=== PATIENT | male | born 1960 | race Caucasian/White ===

== ENCOUNTER 2019-02-23 23:46 | Observation (INO) | payer OTHER ==
[2019-02-24] MEDS ORDERED: Morphine 4 MG/ML VIAL ONE (00:09)
[2019-02-24] MEDS ORDERED: Ondansetron PF 4 MG/2 ML Vial ONE (00:09)
[2019-02-24 00:33] LABS: #Basophils 0.1 thou/uL (0.0-0.2); #Eosinphils 0.4 thou/uL (0.0-0.7); #Monocytes 0.9 thou/uL (0.11-0.59); #Neutrophils 6.6 thou/uL (1.40-6.50); %Basophils 0.7 % (0.0-1.0); %Eosinophils 3.6 % (0.0-10.0); %Lymphocytes 27.1 % (21.0-51.0); %Monocytes 8.2 % (0.0-10.0); %Neutrophils 60.4 % (42.0-75.0); Hemoglobin 15.4 g/dL (14.0-18.0); Mean Corpuscular HGB CONC 34.3 g/dL (32.0-36.0); Mean Corpuscular Hemoglobin 29.1 pg (27.0-31.0); Mean Corpuscular Volume 84.9 fL (78.0-98.0); Mean Platelet Volume 10.6 fL (7.4-10.4); Platelet Count 235 thou/uL (130-400); RBC Distribution Width 12.3 % (11.5-14.5); Red Blood Cell (RBC) Count 5.29 mill/uL (4.70-6.10)
[2019-02-24 01:03] LABS: ALT (SGPT) 40 U/L (8-55); AST (SGOT) 25 U/L (5-34); Albumin 4.6 g/dL (3.5-5.0); Alkaline Phosphatase 96 U/L (40-150); Anion Gap 14 mmol/L (10-20); BUN (Urea Nitrogen) 21 mg/dL (8.4-25.7); Bilirubin, Total 0.4 mg/dL (0.2-1.2); Calc. Creatinine Clearance 0 mL/min (70-130); Calcium 9.4 mg/dL (7.8-10.44); Carbon Dioxide 26 mmol/L (22-29); Chloride 101 mmol/L (98-107); Estimated GFR-MDRD 67; Globulin 3.7 g/dL (2.4-3.5); Glucose 148 mg/dL (70-105); Lipase 26 U/L (8-78); Potassium 4.3 mmol/L (3.5-5.1); Protein, Total 8.3 g/dL (6.0-8.3); Sodium 137 mmol/L (136-145)
[2019-02-24] MEDS ORDERED: hydrALAZINE 20 MG/ML VIAL ONE (01:05)
[2019-02-24] MEDS ORDERED: Nitroglycerin 0.4 MG TAB 1 EACH ONE (02:54)
[2019-02-24] MEDS ORDERED: Nitroglycerin 2% Ointment 1 INCH/1 GM Packet ONE (03:41)
[2019-02-24 03:46] LABS: Troponin I 0.017 ng/mL (< 0.028)
[2019-02-24 05:22] VITALS: BMI 37.1
--- NOTE | 2019-02-24 07:47 | RAD ---
EXAM: Portable chest PROVIDED CLINICAL HISTORY: Chest pain COMPARISON: None FINDINGS: Cardiac and mediastinal silhouette is within normal limits. No focal consolidation, pleural fluid or pneumothorax evident. IMPRESSION: No evidence for an acute cardiopulmonary process.
[2019-02-24 07:55] LABS: Troponin I 0.022 ng/mL (< 0.028)
--- NOTE | 2019-02-24 08:50 | CT ---
PRELIMINARY REPORT/[facility]/EMERGENCY AFTER HOURS PROCEDURE: PROCEDURE INFORMATION: Exam: CT Angiography Chest With Contrast Exam date and time: 02/24/2019 12:44 AM Clinical history: 58 years old, male; Abdominal pain; Generalized; Patient HX: 58 y/o m, with h/o HTN, hyperlipidemia, presents to ED C/O sudden onset of cp that began at approx 1830, shortly after P T finished eating. He did take his bld pressure medications today. No h/o tobacco use, frequent ETOH ingestion. Pain radiates, to the back, abd, chest pain diffuse to chest. No surgical history TECHNIQUE: Imaging protocol: Computed tomographic angiography of the chest with intravenous contrast. 3D rendering: MIP reconstructed images were created and reviewed. COMPARISON: No relevant prior studies available. FINDINGS: Pulmonary arteries: Normal. No pulmonary emboli. Aorta: Aorta is unremarkable. Lungs: Unremarkable. No consolidation. No masses. Pleural space: Unremarkable. No pneumothorax. No pleural effusion. Heart: Unremarkable. No cardiomegaly. No pericardial effusion. Mediastinum: Esophagus is unremarkable. Lymph nodes: Unremarkable. No enlarged lymph nodes. Bones/joints: Unremarkable. No acute fracture. Soft tissues: Unremarkable. IMPRESSION: 1. No acute findings. 2. Aorta is unremarkable. PROCEDURE INFORMATION: Exam: CT Angiography Abdomen With Contrast Exam date and time: 02/24/2019 12:44 AM Clinical history: 58 years old, male; Abdominal pain; Generalized; Patient HX: 58 y/o m, with h/o HTN, hyperlipidemia, presents to ED C/O sudden onset of cp that began at approx 1830, shortly after P T finished eating. He did take his bld pressure medications today. No h/o tobacco use, frequent ETOH ingestion. Pain radiates, to the back, abd, chest pain diffuse to chest. No surgical history TECHNIQUE: Imaging protocol: Computed tomographic angiography images of the abdomen with intravenous contrast material. 3D rendering: MIP reconstructed images were created and reviewed. COMPARISON: No relevant prior studies available. FINDINGS: VASCULATURE: Aorta: Aorta is unremarkable. Celiac trunk and mesenteric arteries: No occlusion or significant stenosis. Renal arteries: No occlusion or significant stenosis. ABDOMEN: Liver: Large area of multifocal hyperenhancement in the right lobe of the liver may signify vascular malformations. No discrete mass lesion identified. Gallbladder and bile ducts: Cholelithiasis. No cholecystitis or biliary ductal dilatation. Pancreas: Normal. No ductal dilation. Spleen: Normal. No splenomegaly. Adrenals: Normal. No mass. Kidneys and ureters: Normal. No hydronephrosis. Stomach and bowel: Unremarkable. No obstruction. No mucosal thickening. Intraperitoneal space: Unremarkable. No free air. No significant fluid collection. Bones/joints: Unremarkable. No acute fracture. No dislocation. Soft tissues: Unremarkable. Lymph nodes: Unremarkable. No enlarged lymph nodes. IMPRESSION: 1. Large area of multifocal hyperenhancement in the right lobe of the liver may signify vascular malformations. No discrete mass lesion identified. 2. Aorta is unremarkable. Thank you for allowing us to participate in the care of your patient. Dictated and Authenticated by: Chavez Christopher MD 02/24/2019 1:01 AM Central Time ([place] & [place]) FINAL REPORT: CT ANGIOGRAM CHEST AND ABDOMEN WITH IV CONTRAST AND 3D MIP RECONSTRUCTIONS: PROVIDED CLINICAL HISTORY: Chest pain. COMPARISON: CT 01/11/2013. FINDINGS/IMPRESSION: Agree with the preliminary interpretation given by NEHEMIAH. Right hepatic lobe enhancement differences a ppear similar to the prior CT of the abdomen. Transcribed Date/Time: 02/24/2019 9:23 AM
--- NOTE | 2019-02-24 10:56 | HP ---
CHIEF COMPLAINT: Chest pain. HISTORY OF PRESENT ILLNESS: This patient is a 58-year-old male, who presented via the emergency department with complaint of chest pain. He reports the pain started on the evening of 02/23/2019, around 2130 hours. It was gradual in onset and was described as pressure and dullness. It was midsternal to mid abdomen and radiating to the back. At 2345 hours, the patient's son drove him to the ER because the pain had reached a level of 8/10 and was unbearable. He had some diaphoresis, but denied nausea, vomiting, shortness of breath, or headache. His blood pressure on arrival was 188 and peaked at 216/103 in the emergency department. There were no antecedent stressors that the patient can identify that might have caused elevation in blood pressure, and there were no exacerbating or alleviating factors. In the emergency department, the patient had nitroglycerin, hydralazine, morphine, and Zofran with some improvement of his blood pressure. The patient has had no prior cardiac workup and does not have a stock drier tender. REVIEW OF SYSTEMS: The patient does report occasionally having some reflux type symptoms, but only a couple of times per year. He has the above-mentioned chest pain. All other systems were reviewed. All other pertinent positives and negatives noted in the history of present illness. PAST MEDICAL HISTORY: Hypertension, hyperlipidemia. 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 Walker for in the past and these are apparently benign. History of colon polyps with polypectomy in 2017. SURGICAL HISTORY: Colonoscopy x2. FAMILY HISTORY: Father had an RI at 57, hypertension, diabetes. His mother had hypertension. SOCIAL HISTORY: The patient drinks about one glass of wine per week. He denies alcohol or drugs. He is . He is full code, and his , Tamara Laurent would be his surrogate decision maker. ALLERGIES: NONE. MEDICATIONS: 1. Lisinopril 20 mg daily. 2. Atorvastatin 40 mg daily. PHYSICAL EXAMINATION: VITAL SIGNS: Blood pressure 132/63, pulse 71, respirations 20, O2 saturations 97% on room air. GENERAL APPEARANCE: Age-appropriate male, in no distress. He is awake and alert. He is obese. HEENT: PERRL. No OP lesions. Anicteric sclera. NECK: Supple and symmetric. No lymphadenopathies or bruits. HEART: Regular with no murmurs, gallops, or rubs. Lungs: Clear to auscultation bilaterally with no wheezes or rales. Has fair air exchange and good chest wall expansion. ABDOMEN: Soft, nondistended. Positive bowel sounds, which are normal. No guarding or rebound. No hepatosplenomegaly. Has some slight vague tenderness in the epigastric area. EXTREMITIES: No cyanosis, clubbing, or edema. Pulses present. NEUROLOGIC: The patient is oriented x3. Cranial nerves are grossly intact. No focal deficits. Has spontaneous movement of all extremities. SKIN: Warm and dry with no lesions. PSYCHIATRIC: Normal affect and behavior. LABORATORY DATA: White count 11.0, hemoglobin 15.4, platelets 235. Sodium 137, potassium 4.3, chloride 101, CO2 of 26, BUN 21, creatinine is 1.12, glucose 148. Troponin initially less than 0.01, subsequent 0.017 and the third is 0.022. Chest x-ray shows no acute processes. CT dissection protocol is negative other than the liver vessels, which were previously known. EKG shows some right axis deviation, no ischemic changes, subsequently noted some sinus bradycardia. IMPRESSION AND PLAN: 1. Chest pain in a patient with a family history of coronary artery disease, hypertension, and hyperlipidemia. His troponins are still negative, but trending slightly upward, I suspect this is more related to the hypertension. We will go ahead and obtain exercise stress test today. 2. Hypertension, hypertensive urgency, resolved. We will continue to monitor his pressure while here. 3. Possible history of reflux, appears to be stable, may be the source of his underlying symptoms, although given his blood pressure, would be less likely. Job ID: [id number]
[2019-02-24] MEDS ORDERED: ISOVUE-370 76%-LOCM 1 ML ONE (12:45)
[2019-02-24 13:48] VITALS: BP 120/56; TEMP 98.1
--- NOTE | 2019-02-24 14:00 | NM ---
EXAM: NM Cardiac Stress W EF WF PROVIDED CLINICAL HISTORY: Chest pain COMPARISON: None RADIOPHARMACEUTICAL: 27.5 millicuries technetium 99m labeled sestamibi IV stress 9.1 millicuries technetium 99m labeled sestamibi IV rest FINDINGS: There is normal, homogeneous distribution of radiotracer throughout the left ventricular myocardium. Gated data demonstrate normal myocardial wall motion and thickening with calculated LVEF 74%. Calculated TID is 0.93. IMPRESSION: 1. No scintigraphic evidence for ischemia. 2. Calculated LVEF 74%.
[2019-02-25] MEDS ORDERED: Lisinopril 20 MG TAB PO SCH (09:00)
[2019-02-25] MEDS ORDERED: Atorvastatin Calcium 40 MG TAB PO SCH (09:00)
--- NOTE | 2019-02-25 17:17 | DIS ---
DATE OF ADMISSION: 02/24/2019 DATE OF DISCHARGE: 02/24/2019 DISCHARGE DIAGNOSES: 1. Chest pain. 2. Hypertensive urgency. 3. Hypertension. 4. Hyperlipidemia. 5. 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 HISTORY OF PRESENT ILLNESS: This patient is a 58-year-old male, who presented to the emergency department with a complaint of chest pain, started out as a dullness and pressure-type pain, became more severe to 8/10. It became unbearable and he presented to the emergency department, where he had BP as high as 216/103, had no antecedent stressors. He received nitroglycerin, hydralazine, morphine and Zofran, and his blood pressure improved. His initial workup included labs with a troponin less than 0.01. CT dissection protocol of the chest was negative. EKG showed some right axis deviation, no ischemic changes. HOSPITAL COURSE: The patient was placed in observation status. His blood pressure had significantly improved. He had negative findings on the telemetry other than sinus rhythm. His troponins trended at 0.017 and 0.022. He underwent a nuclear medicine stress test, which was negative for ischemic disease. EF was calculated at 74% and his calculated TID was 0.93 with that the patient being asymptomatic. He was felt to be stable for discharge. PHYSICAL EXAMINATION: VITAL SIGNS: Temperature is 98.1, pulse 75, respirations 18, O2 saturation 93%. BP was 120/56. HEART: Regular rate and rhythm. LUNGS: Clear. ABDOMEN: Benign. DISPOSITION: The patient is discharged to home. He is to have a heart-healthy diet. ACTIVITY: As tolerated. He will be on atorvastatin 40 mg daily, lisinopril 20 mg daily. FOLLOWUP: He is to follow up with Dr. London Rand in 4 days and he can return to the hospital should he have the need to do so. Job ID: [id number]
== END 2019-02-24 15:26 | disposition home or self-care (01) ==
LOC: ERS 23:46 → 2SW 02-24 04:50
PROVIDERS: ADMIT Hospitalist; ATTEND Hospitalist
DX: R07.2 Precordial pain (principal); I16.0 Hypertensive urgency; I10 Essential (primary) hypertension; E78.5 Hyperlipidemia, unspecified; Z79.899 Other long term (current) drug therapy
CPT/HCPCS: 36415; 71045; 71275; 72191; 74175; 78452; 80053; 83690; 84484; 85025; 93005; 93017; 96374; 96375; A9500; G0378; J0360; J2270; J2405; Q9966

== ENCOUNTER 2020-06-13 10:27 | Inpatient (IN) | payer OTHER ==
[2020-06-13] MEDS ORDERED: Ibuprofen 800 MG TAB ONE (10:39)
[2020-06-13 10:47] LABS: Hemoglobin 13.8 g/dL (14.0-18.0); Mean Corpuscular HGB CONC 32.6 g/dL (32.0-36.0); Mean Corpuscular Hemoglobin 27.7 pg (27.0-31.0); Mean Corpuscular Volume 84.9 fL (78.0-98.0); Mean Platelet Volume 10.3 fL (7.4-10.4); Platelet Count 261 thou/uL (130-400); RBC Distribution Width 12.4 % (11.5-14.5); Red Blood Cell (RBC) Count 4.97 mill/uL (4.70-6.10); White Blood Cell (WBC) Count 21.6 thou/uL (4.8-10.8)
[2020-06-13] MEDS ORDERED: cefTRIAXone\\ROCEPHIN 2 GM VIAL ONE (10:49)
[2020-06-13] MEDS ORDERED: Azithromycin 500 MG VIAL ONE (10:49)
[2020-06-13] MEDS ORDERED: Dexamethasone 4 mg/ml Vial ONE (10:49)
[2020-06-13 10:57] LABS: INR-International Normal Ratio 1.2; PTT 27.9 sec (22.9-36.1); Prothrombin Time 15.7 sec (12.0-14.7)
--- NOTE | 2020-06-13 10:58 | RAD ---
XR Chest 1 View Portable HISTORY: Covid 19 positive. Low oxygen stats. Hypoxia COMPARISON: None FINDINGS: The heart size is normal. The lungs are hypoinflated with the patchy opacities bilaterally. No pneumothoraces or large effusions are seen.. IMPRESSION: Findings are suspicious for Covid 19 pneumonia.
[2020-06-13 11:07] LABS: Band 5 % (5-11); Lymphocytes 2 % (21-51); MDiff Complete? YES; Monocytes 6 % (0-10); Neutrophil 86 % (42-75); Promyelocytes 1 % (0-0); RBC Morphology Normal
[2020-06-13 11:12] LABS: ALT (SGPT) 74 U/L (8-55); AST (SGOT) 41 U/L (5-34); Alkaline Phosphatase 67 U/L (40-110); Anion Gap 18 mmol/L (10-20); BUN (Urea Nitrogen) 20 mg/dL (8.4-25.7); Calc. Creatinine Clearance 0 mL/min (70-130); Calcium 8.7 mg/dL (7.8-10.44); Carbon Dioxide 24 mmol/L (22-29); Chloride 98 mmol/L (98-107); Globulin 4.3 g/dL (2.4-3.5); Glucose 127 mg/dL (70-105); Lipase 15 U/L (8-78); Potassium 3.6 mmol/L (3.5-5.1); Protein, Total 8.3 g/dL (6.0-8.3); Sodium 136 mmol/L (136-145)
[2020-06-13] MEDS ORDERED: Ondansetron ODT 4 MG TAB PO PRN (12:24)
[2020-06-13] MEDS ORDERED: Calcium Carbonate 500 MG ChewTAB PO PRN (12:24)
[2020-06-13] MEDS ORDERED: Ondansetron PF 4 MG/2 ML Vial IVP PRN (12:24)
--- NOTE | 2020-06-13 13:03 | PDOC.HHP ---
Hospitalist HPI - History of Present Illness Worsening cough, shortness of breath History of Present Illness: PCP: Dr. Rand HPI: The patient is a 59-year-old male with a past medical history significant for hypertension and hyperlipidemia that presents to the emergency department for the above complaint. The patient reports being diagnosed with Covid virus approximately 11 days ago, making his diagnosis date 06/03/2020. He reports that he had mild shortness of breath and nonproductive cough. However, yesterday he developed fever, T-max 102 Fahrenheit along with increasing shortness of breath and nonproductive cough. He has no history of DVT/PE. No history of COPD/asthma. He denies any chest pain, heart palpitations or lightheadedness. No swelling to his lower extremities. Denies abdominal pain, nausea, vomiting and diarrhea. Denies dysuria hematuria. ED Course: Presented febrile T 100.8F, 137/73, 95, 25, 91% 6 LNC. EKG normal sinus rhythm. Troponin negative. CXR suspicious for Covid pneumonia. WBC 21.6, no bandemia Lactic acid 2.0 Medications: Azithromycin and Rocephin IVPB 1 L normal saline Dexamethasone Ibuprofen Hospitalist ROS - Review of Systems All other systems reviewed; all pertinent +/- noted in HPI/Subj - Medication Medications: Atorvastatin 40 mg p.o. daily Lisinopril 20 mg p.o. daily Allergies: No known drug allergies CODE STATUS: Full code Hospitalist History - Past Medical History Source: patient, RN notes reviewed Cardiac: reports: HTN, Hyperlipidemia - Past Surgical History Past Surgical History: reports: no pertinent history - Family History Other Family History: Noncontributory to this case - Social History Smoking Status: Never smoker Alcohol: reports: None Drugs: reports: none Living Situation: With Family Occupation: Has office job Activity level: independent ambulation - Exam General Appearance: NAD, awake alert. negative: ill appearing General - other findings: Appears comfortable, on high flow nasal cannula Eye: anicteric sclera ENT: normocephalic atraumatic Neck: supple, no lymphadenopathy Heart: RRR, no murmur, no gallops, no rubs, normal peripheral pulses Respiratory: no wheezes, no rales, no ronchi Respiratory - other findings: Diminished Gastrointestinal: soft, non-tender, normal bowel sounds, no guarding, no rigidity Extremities: no cyanosis, no edema Neurological: no focal deficits Musculoskeletal: normal tone, normal strength Psychiatric: normal affect, A&O x 3 Hospitalist Results - Labs Result Diagrams: 06/13/20 10:37 06/13/20 10:37 Lab results: WBC 21.6 thou/uL (4.8-10.8) H 06/13/20 10:37 Hgb 13.8 g/dL (14.0-18.0) L 06/13/20 10:37 Hct 42.3 % (42.0-52.0) 06/13/20 10:37 MCV 84.9 fL (78.0-98.0) 06/13/20 10:37 Plt Count 261 thou/uL (130-400) 06/13/20 10:37 Band Neuts % (Manual) 5 % (5-11) 06/13/20 10:37 Sodium 136 mmol/L (136-145) 06/13/20 10:37 Potassium 3.6 mmol/L (3.5-5.1) 06/13/20 10:37 Chloride 98 mmol/L (98-107) 06/13/20 10:37 Carbon Dioxide 24 mmol/L (22-29) 06/13/20 10:37 BUN 20 mg/dL (8.4-25.7) 06/13/20 10:37 Creatinine 1.25 mg/dL (0.7-1.3) 06/13/20 10:37 Glucose 127 mg/dL (70-105) H 06/13/20 10:37 Lactic Acid 2.0 mmol/L (0.5-2.2) 06/13/20 10:37 Calcium 8.7 mg/dL (7.8-10.44) 06/13/20 10:37 Total Bilirubin 1.0 mg/dL (0.2-1.2) 06/13/20 10:37 AST 41 U/L (5-34) H 06/13/20 10:37 ALT 74 U/L (8-55) H 06/13/20 10:37 Alkaline Phosphatase 67 U/L (40-110) 06/13/20 10:37 Troponin I 0.015 ng/mL (< 0.028) 06/13/20 10:37 Serum Total Protein 8.3 g/dL (6.0-8.3) 06/13/20 10:37 Albumin 4.0 g/dL (3.5-5.0) 06/13/20 10:37 Lipase 15 U/L (8-78) 06/13/20 10:37 - EKG Interpretation EKG: Normal sinus rhythm, no ST elevations. - Radiology Interpretation Chest x-ray Status: report reviewed by me Additional Comment: Suspicious for Covid pneumonia Hospitalist H&P A/P - Problem (1) Acute respiratory failure with hypoxia Code(s): J96.01 - ACUTE RESPIRATORY FAILURE WITH HYPOXIA Status: Acute (2) Pneumonia due to COVID-19 virus Code(s): U07.1 - COVID-19; J12.82 - PNEUMONIA DUE TO CORONAVIRUS DISEASE 2019 Status: Acute (3) Sepsis Code(s): A41.9 - SEPSIS, UNSPECIFIED ORGANISM Status: Acute (4) Hypertension Code(s): I10 - ESSENTIAL (PRIMARY) HYPERTENSION Status: Chronic (5) Hyperlipidemia Code(s): E78.5 - HYPERLIPIDEMIA, UNSPECIFIED Status: Chronic - Plan Plan: 59/M diagnosed with Covid virus 06/03/2020 presents for worsening shortness of breath, cough and fever. Admit to medical floor, observation status. #Acute respiratory failure with hypoxia A: Placed on high flow NC, 98% SPO2. NAD Diagnosed 06/03/2020, not a candidate for remdesivir. Continue azithromycin and Rocephin IVPB. Continue dexamethasone. Continue Lovenox. Consult ID. Isolation precautions. Trend acute phase reactants. #Pneumonia due to COVID-19 virus Plan as per above. #Sepsis Likely due to problem #2. LA 2.0, WBC 21.6, no bandemia Received 1 L NS in ED. BP stable. Blood CX pending Check procalcitonin. Continue antibiotics. #Hypertension Chronic. Restart home dose lisinopril. #Hyperlipidemia Restart home dose atorvastatin. Lovenox for DVT prophylaxis. Pepcid for GI prophylaxis. CODE STATUS is full code. Contact is Lester trinh at [phone]. Discussed the case with attending physician, Dr. Gallo.
[2020-06-13 15:43] VITALS: BMI 34.9
[2020-06-13 16:54] LABS: Bacteria/HPF None Seen HPF (None Seen); Bilirubin Negative (Negative); Blood, Urine Negative (Negative); Clarity Clear (Clear); Glucose, Urine (Dipstick) Normal (Negative); Ketone, Urine Negative (Negative); Leukocyte Negative Leu/uL (Negative); Nitrite Negative (Negative); Protein, Urine (Dipstick) 20 mg/dL (Neg-Trace); RBC/HPF 0-3 HPF (0-3); Specific Gravity, Urine 1.012 (1.002-1.036); Squamous Epithelial 0-3 HPF (0-3); Urobilinogen Normal mg/dL (Less than 2); WBC/HPF 0-3 HPF (0-3)
[2020-06-13] MEDS: Famotidine/PF 20 mg/2ml Vial SLOW IVP SCH (19:19)
[2020-06-13] MEDS: Enoxaparin Sodium 40 MG/0.4 ML SYRINGE SC SCH (19:54)
[2020-06-13] MEDS: Famotidine 20 MG TAB PO SCH (19:54)
[2020-06-14] MEDS: Acetaminophen 325 MG TAB PO PRN ×2 (05:54→19:46)
[2020-06-14] MEDS: Guaifenesin DM 100-10/5 ML UDCUP PO PRN ×3 (05:55→19:45)
[2020-06-14 07:07] LABS: #Lymphocytes 0.5 thou/uL (1.20-3.40); #Monocytes 1.1 thou/uL (0.11-0.59); #Neutrophils 17.7 thou/uL (1.40-6.50); %Eosinophils 0.2 % (0.0-10.0); %Lymphocytes 2.5 % (21.0-51.0); %Monocytes 5.5 % (0.0-10.0); %Neutrophils 91.7 % (42.0-75.0); Hemoglobin 12.8 g/dL (14.0-18.0); Mean Corpuscular HGB CONC 32.7 g/dL (32.0-36.0); Mean Corpuscular Hemoglobin 28.2 pg (27.0-31.0); Mean Corpuscular Volume 86.4 fL (78.0-98.0); Platelet Count 239 thou/uL (130-400); RBC Distribution Width 12.3 % (11.5-14.5); Red Blood Cell (RBC) Count 4.52 mill/uL (4.70-6.10); White Blood Cell (WBC) Count 19.4 thou/uL (4.8-10.8)
[2020-06-14 07:23] LABS: ALT (SGPT) 78 U/L (8-55); AST (SGOT) 38 U/L (5-34); Albumin 3.6 g/dL (3.5-5.0); Alkaline Phosphatase 65 U/L (40-110); Anion Gap 14 mmol/L (10-20); BUN (Urea Nitrogen) 20 mg/dL (8.4-25.7); Bilirubin, Total 0.5 mg/dL (0.2-1.2); Calc. Creatinine Clearance 132 mL/min (70-130); Calcium 8.5 mg/dL (7.8-10.44); Carbon Dioxide 26 mmol/L (22-29); Chloride 101 mmol/L (98-107); Globulin 4.1 g/dL (2.4-3.5); Glucose 136 mg/dL (70-105); Protein, Total 7.7 g/dL (6.0-8.3); Sodium 137 mmol/L (136-145)
[2020-06-14] MEDS: Zinc Sulfate 220 MG CAP PO SCH (07:43)
[2020-06-14] MEDS: Cholecalciferol 1,000 UNITS (25 MCG) TAB PO SCH (07:43)
[2020-06-14] MEDS: Dexamethasone 4 mg/ml Vial SLOW IVP SCH (07:44)
[2020-06-14] MEDS: Famotidine 20 MG TAB PO SCH ×2 (07:44→19:45)
[2020-06-14] MEDS: Ascorbic Acid 500 mg Chewable Tablet PO SCH (07:44)
[2020-06-14] MEDS: Famotidine/PF 20 mg/2ml Vial SLOW IVP SCH ×2 (07:45→19:02)
[2020-06-14] MEDS: Enoxaparin Sodium 40 MG/0.4 ML SYRINGE SC SCH ×2 (07:45→19:45)
[2020-06-14] MEDS: cefTRIAXone\\ROCEPHIN 1 GM in Sodium Chloride 0.9% 100 ML IVPB SCH (10:05)
[2020-06-14] MEDS: Azithromycin 500 MG in Sodium Chloride 0.9% 250 ML 250 ML IVPB SCH (11:55)
--- NOTE | 2020-06-14 14:40 | PDOC.HOSPP ---
- Subjective Encounter Date: 06/14/20 Encounter Time: 09:45 Subjective: is comfortable on high flow, eating well no chest pain or palp - Objective Vital Signs & Weight: Vital Signs (12 hours) Temp Pulse Resp BP Pulse Ox 06/14/20 12:00 99 F 70 18 144/78 H 92 L 06/14/20 08:29 98.4 F 68 20 117/73 95 06/14/20 08:05 92 L 06/14/20 08:00 96 06/14/20 05:54 99.8 F H Weight Weight 216 lb 8 oz I&O: 06/13/20 06/14/20 06/15/20 06:59 06:59 06:59 Intake Total 600 Output Total 100 Balance 500 Result Diagrams: 06/14/20 06:14 06/14/20 06:14 Hospitalist ROS - Medication Medications: Active Medications Generic Name Dose Route Start Last Admin Trade Name Freq PRN Reason Stop Dose Admin Acetaminophen 650 mg 06/13/20 12:24 06/14/20 05:54 Acetaminophen 325 Mg Tab PO 650 mg Q4H PRN Administration Headache/Fever/Mild Pain (1-3) Ascorbic Acid 1,000 mg 06/14/20 09:00 06/14/20 07:44 Ascorbic Acid 500 Mg Chewable Tablet PO 1,000 mg DAILY RENAE Administration Cholecalciferol 5,000 units 06/14/20 09:00 06/14/20 07:43 Cholecalciferol 1,000 Units (25 Mcg) Tab PO 5,000 units DAILY RENAE Administration Dexamethasone 6 mg 06/14/20 09:00 06/14/20 07:44 Dexamethasone 4 Mg/Ml Vial SLOW IVP 6 mg DAILY RENAE Administration Enoxaparin Sodium 40 mg 06/13/20 21:00 06/14/20 07:45 Enoxaparin Sodium 40 Mg/0.4 Ml Syringe SC 40 mg 0900,2100 RENAE Administration Famotidine 20 mg 06/13/20 21:00 06/14/20 07:44 Famotidine 20 Mg Tab PO 20 mg BID RENAE Administration Famotidine 20 mg 06/13/20 21:00 06/14/20 07:45 Famotidine/Pf 20 Mg/2ml Vial SLOW IVP Not Given Q12HR RENAE Guaifenesin/Dextromethorphan 15 ml 06/13/20 12:24 06/14/20 05:55 Guaifenesin Dm 100-10/5 Ml Udcup PO 15 ml Q4H PRN Administration Cough Ceftriaxone Sodium 1 gm/ 100 mls @ 200 mls/hr 06/14/20 11:00 06/14/20 10:05 Sodium Chloride IVPB 100 mls 1100 RENAE Administration Azithromycin 500 mg/ Sodium 250 mls @ 250 mls/hr 06/14/20 10:00 06/14/20 11:55 Chloride IVPB 250 mls 1000 RENAE Administration Zinc Sulfate 220 mg 06/14/20 09:00 06/14/20 07:43 Zinc Sulfate 220 Mg Cap PO 220 mg DAILY RENAE Administration - Exam General Appearance: awake alert Eye: PERRL, anicteric sclera ENT: no oropharyngeal lesions, moist mucosa Neck: supple, no JVD Heart: RRR, no murmur Respiratory: no wheezes, rales, rhonchi Gastrointestinal: soft, non-tender, non-distended, normal bowel sounds Extremities: no cyanosis, no edema Neurological: cranial nerve grossly intact, no focal deficits Psychiatric: normal affect, A&O x 3 Hosp A/P (1) Acute respiratory failure with hypoxia Code(s): J96.01 - ACUTE RESPIRATORY FAILURE WITH HYPOXIA Status: Acute (2) Pneumonia due to COVID-19 virus Code(s): U07.1 - COVID-19; J12.82 - PNEUMONIA DUE TO CORONAVIRUS DISEASE 2019 Status: Acute (3) Sepsis Code(s): A41.9 - SEPSIS, UNSPECIFIED ORGANISM Status: Acute Qualifiers: Sepsis type: sepsis due to unspecified organism (4) Hyperlipidemia Code(s): E78.5 - HYPERLIPIDEMIA, UNSPECIFIED Status: Chronic Qualifiers: Hyperlipidemia type: unspecified Qualified Code(s): E78.5 - Hyperlipidemia, unspecified (5) Hypertension Code(s): I10 - ESSENTIAL (PRIMARY) HYPERTENSION Status: Chronic Qualifiers: Hypertension type: essential hypertension Qualified Code(s): I10 - Essential (primary) hypertension (6) Obesity (BMI 30.0-34.9) Code(s): E66.9 - OBESITY, UNSPECIFIED Status: Chronic - Plan is on dexamethasone, zithromax and ceftriaxone due to elevated wbc, alb inh continue vit C, zinc, lovenox dvt prophy, pepcid has covid symptoms from 06/03, await opinion for remdesivir, has potential to get worse crp is 16 change status to inpatient with high risk for decompensating and currently on high flow
[2020-06-14] MEDS: Albuterol 200 PUFF (6.7GM INHALER) INH PRN (20:42)
--- NOTE | 2020-06-14 21:47 | CON ---
DATE OF CONSULTATION: 06/14/2020 REASON: COVID pneumonia. HISTORY OF PRESENT ILLNESS: A 59-year-old, who has a history of hyperlipidemia, hypertension, presented with worsening dyspnea and cough, which had been present for about 11 days before his admission. He was admitted on June 13. His initial blood pressure was 130/70 and he was breathing 25 times a minute. His temperature was 100.8. O2 saturations were 91 on 4 L. The exam showed increased work of breathing and poor air movement. The remainder of the examination was not particularly remarkable. The chest x-ray shows diffuse infiltrates. A CT was not done. Initial findings also included white cell count 21.6, hemoglobin 13.8, platelets were 261 with 86% neutrophils. Initial chemistry with a creatinine 1.25, AST 41, ALT 74, albumin 4.0. Initial CRP was 16.69 but that was day after admission. He has been given Rocephin, and Decadron. Currently, he is actually on high-flow nasal cannula O2. He was saturating at 94 when I saw him, flow of 60. He was breathing 36 times a minute. He did not have a headache. He is feeling comfortable at rest, although he was tachypneic, coughing intermittently, mostly a dry cough. No chest pain or abdominal pain. Voiding without difficulty. Some diarrhea, is able to eat, and has not experienced anosmia or taste changes. PAST MEDICAL HISTORY: Obesity, hyperlipidemia, hypertension. PAST SURGICAL HISTORY: Negative. SOCIAL HISTORY: He drinks occasionally, never smoker. ALLERGIES: NONE. FAMILY HISTORY: Noncontributory. MEDICATIONS: The meds have been discussed above. PHYSICAL EXAMINATION: VITAL SIGNS: T-max 99.8, is now 98.8. His heart rate is 79, BP 130/70. He was breathing. When I saw him, he was breathing at 36 times a minute. He was saturating 94% with 60 L high-flow nasal cannula O2. HEENT: His ocular movements are conjugate. Oral cavity is normal. LUNGS: With scattered inspiratory crackles, quite cellophane like at the bases. The air excursion was quite limited. HEART: S1, S2, regular rate. ABDOMEN: Soft, not distended or tender. No ascites. No bladder distention. EXTREMITIES: He moves all extremities equally. LABORATORY DATA: Latest labs, creatinine is 0.84 and AST 38, ALT 78. White cell count was 19.4, hemoglobin 12.8. His ROSEMARY score was 5.22. ASSESSMENT: Obesity, hypertension, hyperlipidemia, severe SARS-CoV-2 infection with pneumonia. The patient's ROSEMARY score is going towards the wrong direction, and his lungs sounds are very worrisome for the prospect of protracted process, and unless the corticosteroids turn this process around, he is going to end up in the ICU intubated. Monitor inflammatory markers every other day. He would not benefit from antiviral treatment at this point in time. It is mostly an inflammatory process, again tocilizumab has been shown recently in two separate studies to be effective not only in reducing mortality but marked reduction in time to recovery, so hopefully soon will be able to take advantage of this drug again. Job ID: [id number] SHANNON
[2020-06-15] MEDS: Acetaminophen 325 MG TAB PO PRN ×2 (03:50→11:50)
[2020-06-15] MEDS: Albuterol 200 PUFF (6.7GM INHALER) INH PRN (04:06)
[2020-06-15] MEDS: Enoxaparin Sodium 40 MG/0.4 ML SYRINGE SC SCH ×2 (09:15→20:39)
[2020-06-15] MEDS: Cholecalciferol 1,000 UNITS (25 MCG) TAB PO SCH (09:16)
[2020-06-15] MEDS: Dexamethasone 4 mg/ml Vial SLOW IVP SCH (09:16)
[2020-06-15] MEDS: Zinc Sulfate 220 MG CAP PO SCH (09:16)
[2020-06-15] MEDS: Ascorbic Acid 500 mg Chewable Tablet PO SCH (09:17)
[2020-06-15] MEDS: Famotidine/PF 20 mg/2ml Vial SLOW IVP SCH ×2 (11:48→20:42)
[2020-06-15] MEDS: Azithromycin 500 MG in Sodium Chloride 0.9% 250 ML 250 ML IVPB SCH (11:49)
[2020-06-15] MEDS: cefTRIAXone\\ROCEPHIN 1 GM in Sodium Chloride 0.9% 100 ML IVPB SCH (11:49)
[2020-06-15] MEDS: Famotidine 20 MG TAB PO SCH ×2 (11:50→20:40)
--- NOTE | 2020-06-15 14:28 | PDOC.HOSPP ---
- Subjective Encounter Date: 06/15/20 Encounter Time: 09:00 Subjective: has sob, is on high flow ate his breakfast, no new complaints - Objective Vital Signs & Weight: Vital Signs (12 hours) Temp Pulse Resp BP Pulse Ox 06/15/20 12:35 100.9 F H 80 20 92 L 06/15/20 12:33 100.9 F H 81 20 133/67 92 L 06/15/20 12:20 100.9 F H 06/15/20 11:50 100.2 F H 06/15/20 08:00 100.9 F H 81 20 135/79 90 L 06/15/20 07:31 91 L 06/15/20 05:07 99.4 F 20 96 06/15/20 04:00 101.8 F H 78 40 H 134/73 89 L 06/15/20 03:50 101.9 F H Weight Weight 216 lb 8 oz I&O: 06/14/20 06/15/20 06/16/20 06:59 06:59 06:59 Intake Total 2200 Output Total 1975 Balance 225 Result Diagrams: 06/14/20 06:14 06/14/20 06:14 Hospitalist ROS - Medication Medications: Active Medications Generic Name Dose Route Start Last Admin Trade Name Freq PRN Reason Stop Dose Admin Acetaminophen 650 mg 06/13/20 12:24 06/15/20 11:50 Acetaminophen 325 Mg Tab PO 650 mg Q4H PRN Administration Headache/Fever/Mild Pain (1-3) Albuterol Sulfate 2 puff 06/14/20 20:04 06/15/20 04:06 Albuterol 200 Puff (6.7gm Inhaler) INH 2 puff Q4H PRN Administration Wheezing Ascorbic Acid 1,000 mg 06/14/20 09:00 06/15/20 09:17 Ascorbic Acid 500 Mg Chewable Tablet PO 1,000 mg DAILY RENAE Administration Cholecalciferol 5,000 units 06/14/20 09:00 06/15/20 09:16 Cholecalciferol 1,000 Units (25 Mcg) Tab PO 5,000 units DAILY RENAE Administration Dexamethasone 6 mg 06/14/20 09:00 06/15/20 09:16 Dexamethasone 4 Mg/Ml Vial SLOW IVP 6 mg DAILY RENAE Administration Enoxaparin Sodium 40 mg 06/13/20 21:00 06/15/20 09:15 Enoxaparin Sodium 40 Mg/0.4 Ml Syringe SC 40 mg 0900,2100 RENAE Administration Famotidine 20 mg 06/13/20 21:00 06/15/20 11:50 Famotidine 20 Mg Tab PO 20 mg BID RENAE Administration Famotidine 20 mg 06/13/20 21:00 06/15/20 11:48 Famotidine/Pf 20 Mg/2ml Vial SLOW IVP Not Given Q12HR RENAE Guaifenesin/Dextromethorphan 15 ml 06/13/20 12:24 06/14/20 19:45 Guaifenesin Dm 100-10/5 Ml Udcup PO 15 ml Q4H PRN Administration Cough Ceftriaxone Sodium 1 gm/ 100 mls @ 200 mls/hr 06/14/20 11:00 06/15/20 11:49 Sodium Chloride IVPB 100 mls 1100 RENAE Administration Azithromycin 500 mg/ Sodium 250 mls @ 250 mls/hr 06/14/20 10:00 06/15/20 11:49 Chloride IVPB 250 mls 1000 RENAE Administration Zinc Sulfate 220 mg 06/14/20 09:00 06/15/20 09:16 Zinc Sulfate 220 Mg Cap PO 220 mg DAILY RENAE Administration - Exam General Appearance: awake alert Eye: PERRL, anicteric sclera ENT: no oropharyngeal lesions, dry oral mucosa Neck: supple, no JVD Heart: RRR, no murmur Respiratory: no wheezes, rales, rhonchi, tachypneic Gastrointestinal: soft, non-tender, non-distended, normal bowel sounds Extremities: no cyanosis, no edema Neurological: cranial nerve grossly intact, no focal deficits Psychiatric: normal affect, A&O x 3 Hosp A/P (1) Acute respiratory failure with hypoxia Code(s): J96.01 - ACUTE RESPIRATORY FAILURE WITH HYPOXIA Status: Acute (2) Pneumonia due to COVID-19 virus Code(s): U07.1 - COVID-19; J12.82 - PNEUMONIA DUE TO CORONAVIRUS DISEASE 2019 Status: Acute (3) Sepsis Code(s): A41.9 - SEPSIS, UNSPECIFIED ORGANISM Status: Acute Qualifiers: Sepsis type: sepsis due to unspecified organism (4) Hyperlipidemia Code(s): E78.5 - HYPERLIPIDEMIA, UNSPECIFIED Status: Chronic Qualifiers: Hyperlipidemia type: unspecified Qualified Code(s): E78.5 - Hyperlipidemia, unspecified (5) Hypertension Code(s): I10 - ESSENTIAL (PRIMARY) HYPERTENSION Status: Chronic Qualifiers: Hypertension type: essential hypertension Qualified Code(s): I10 - Essential (primary) hypertension (6) Obesity (BMI 30.0-34.9) Code(s): E66.9 - OBESITY, UNSPECIFIED Status: Chronic - Plan is on dexamethasone, zithromax and ceftriaxone due to elevated wbc, alb inh continue vit C, zinc, lovenox dvt prophy, pepcid has covid symptoms from 06/03, d/w , is a candidate for tocalizumab, await drug availability in pharmacy with [facility] approval crp is 16 I have discussed code status with him on 06/14/2020 and he wanted us to try everything for now d/w son and gave a full update including possible worsening and getting intubated if he desaturates 06/15
[2020-06-15] MEDS: Guaifenesin DM 100-10/5 ML UDCUP PO PRN (20:41)
[2020-06-16] MEDS: Guaifenesin DM 100-10/5 ML UDCUP PO PRN ×2 (00:54→21:08)
[2020-06-16] MEDS: Acetaminophen 325 MG TAB PO PRN ×3 (05:31→21:01)
[2020-06-16 06:44] LABS: Mean Corpuscular HGB CONC 31.6 g/dL (32.0-36.0); Mean Corpuscular Hemoglobin 27.2 pg (27.0-31.0); Mean Corpuscular Volume 86.1 fL (78.0-98.0); Mean Platelet Volume 9.6 fL (7.4-10.4); Platelet Count 285 thou/uL (130-400); RBC Distribution Width 12.5 % (11.5-14.5); Red Blood Cell (RBC) Count 4.41 mill/uL (4.70-6.10); White Blood Cell (WBC) Count 20.7 thou/uL (4.8-10.8)
[2020-06-16 06:53] LABS: ALT (SGPT) 101 U/L (8-55); AST (SGOT) 40 U/L (5-34); Albumin 3.4 g/dL (3.5-5.0); Alkaline Phosphatase 63 U/L (40-110); Anion Gap 15 mmol/L (10-20); BUN (Urea Nitrogen) 19 mg/dL (8.4-25.7); Bilirubin, Total 0.8 mg/dL (0.2-1.2); Calc. Creatinine Clearance 127 mL/min (70-130); Calcium 8.1 mg/dL (7.8-10.44); Carbon Dioxide 22 mmol/L (22-29); Chloride 102 mmol/L (98-107); Globulin 4.1 g/dL (2.4-3.5); Glucose 103 mg/dL (70-105); Potassium 4.4 mmol/L (3.5-5.1); Protein, Total 7.5 g/dL (6.0-8.3); Sodium 135 mmol/L (136-145)
[2020-06-16 07:37] LABS: Band 7 % (5-11); Lymphocytes 1 % (21-51); MDiff Complete? YES; Metamyelocyte 5 % (0-0); Monocytes 6 % (0-10); Myelocyte 3 % (0-0); Neutrophil 75 % (42-75); Platelet Morphology Comment Appears Adequate; Polychromasia SLIGHT = 2-3 cells (100X) (0-2/hpf); Reactive Lymphocytes 3 % (0-10); Vacuoles SLIGHT
[2020-06-16] MEDS: Famotidine 20 MG TAB PO SCH ×2 (08:45→21:01)
[2020-06-16] MEDS: Zinc Sulfate 220 MG CAP PO SCH (08:46)
[2020-06-16] MEDS: Cholecalciferol 1,000 UNITS (25 MCG) TAB PO SCH (08:46)
[2020-06-16] MEDS: Ascorbic Acid 500 mg Chewable Tablet PO SCH (08:47)
[2020-06-16] MEDS: Enoxaparin Sodium 40 MG/0.4 ML SYRINGE SC SCH ×2 (08:48→21:23)
[2020-06-16] MEDS: Dexamethasone 4 mg/ml Vial SLOW IVP SCH (08:48)
[2020-06-16] MEDS: Famotidine/PF 20 mg/2ml Vial SLOW IVP SCH ×2 (08:49→21:02)
[2020-06-16] MEDS: cefTRIAXone\\ROCEPHIN 1 GM in Sodium Chloride 0.9% 100 ML IVPB SCH (11:17)
[2020-06-16] MEDS: Azithromycin 500 MG in Sodium Chloride 0.9% 250 ML 250 ML IVPB SCH (11:17)
--- NOTE | 2020-06-16 14:44 | PDOC.HOSPP ---
- Subjective Encounter Date: 06/16/20 Encounter Time: 10:45 Subjective: sob is better, no new symptoms says he slept on his tummy, is exercising around and on bed as much as possible is eating well - Objective Vital Signs & Weight: Vital Signs (12 hours) Temp Pulse Resp BP Pulse Ox 06/16/20 12:00 98.3 F 68 20 92 L 06/16/20 08:00 98.3 F 68 20 111/71 95 06/16/20 05:31 99.5 F 06/16/20 04:00 99.5 F 73 28 H 107/84 97 Weight Weight 216 lb 8 oz I&O: 06/15/20 06/16/20 06/17/20 06:59 06:59 06:59 Intake Total 2200 Output Total 1975 1000 Balance 225 -1000 Result Diagrams: 06/16/20 06:18 06/16/20 06:18 Hospitalist ROS - Medication Medications: Active Medications Generic Name Dose Route Start Last Admin Trade Name Freq PRN Reason Stop Dose Admin Acetaminophen 650 mg 06/13/20 12:24 06/16/20 11:16 Acetaminophen 325 Mg Tab PO 650 mg Q4H PRN Administration Headache/Fever/Mild Pain (1-3) Albuterol Sulfate 2 puff 06/14/20 20:04 06/15/20 04:06 Albuterol 200 Puff (6.7gm Inhaler) INH 2 puff Q4H PRN Administration Wheezing Ascorbic Acid 1,000 mg 06/14/20 09:00 06/16/20 08:47 Ascorbic Acid 500 Mg Chewable Tablet PO 1,000 mg DAILY RENAE Administration Cholecalciferol 5,000 units 06/14/20 09:00 06/16/20 08:46 Cholecalciferol 1,000 Units (25 Mcg) Tab PO 5,000 units DAILY RENAE Administration Dexamethasone 6 mg 06/14/20 09:00 06/16/20 08:48 Dexamethasone 4 Mg/Ml Vial SLOW IVP 6 mg DAILY RENAE Administration Enoxaparin Sodium 40 mg 06/13/20 21:00 06/16/20 08:48 Enoxaparin Sodium 40 Mg/0.4 Ml Syringe SC 40 mg 0900,2100 RENAE Administration Famotidine 20 mg 06/13/20 21:00 06/16/20 08:45 Famotidine 20 Mg Tab PO 20 mg BID RENAE Administration Famotidine 20 mg 06/13/20 21:00 06/16/20 08:49 Famotidine/Pf 20 Mg/2ml Vial SLOW IVP Not Given Q12HR RENAE Guaifenesin/Dextromethorphan 15 ml 06/13/20 12:24 06/16/20 00:54 Guaifenesin Dm 100-10/5 Ml Udcup PO 15 ml Q4H PRN Administration Cough Ceftriaxone Sodium 1 gm/ 100 mls @ 200 mls/hr 06/14/20 11:00 06/16/20 11:17 Sodium Chloride IVPB 100 mls 1100 RENAE Administration Azithromycin 500 mg/ Sodium 250 mls @ 250 mls/hr 06/14/20 10:00 06/16/20 11:17 Chloride IVPB 250 mls 1000 RENAE Administration Zinc Sulfate 220 mg 06/14/20 09:00 06/16/20 08:46 Zinc Sulfate 220 Mg Cap PO 220 mg DAILY RENAE Administration - Exam General Appearance: awake alert Eye: PERRL, anicteric sclera ENT: no oropharyngeal lesions, moist mucosa Neck: supple, no JVD Heart: RRR, no murmur Respiratory: no wheezes, rales, rhonchi Gastrointestinal: soft, non-tender, non-distended, normal bowel sounds Extremities: no cyanosis, no edema Neurological: cranial nerve grossly intact, no focal deficits Psychiatric: normal affect, A&O x 3 Hosp A/P (1) Acute respiratory failure with hypoxia Code(s): J96.01 - ACUTE RESPIRATORY FAILURE WITH HYPOXIA Status: Acute (2) Pneumonia due to COVID-19 virus Code(s): U07.1 - COVID-19; J12.82 - PNEUMONIA DUE TO CORONAVIRUS DISEASE 2019 Status: Acute (3) Sepsis Code(s): A41.9 - SEPSIS, UNSPECIFIED ORGANISM Status: Acute Qualifiers: Sepsis type: sepsis due to unspecified organism (4) Hyperlipidemia Code(s): E78.5 - HYPERLIPIDEMIA, UNSPECIFIED Status: Chronic Qualifiers: Hyperlipidemia type: unspecified Qualified Code(s): E78.5 - Hyperlipidemia, unspecified (5) Hypertension Code(s): I10 - ESSENTIAL (PRIMARY) HYPERTENSION Status: Chronic Qualifiers: Hypertension type: essential hypertension Qualified Code(s): I10 - Essential (primary) hypertension (6) Obesity (BMI 30.0-34.9) Code(s): E66.9 - OBESITY, UNSPECIFIED Status: Chronic - Plan is on high flow O2, dexamethasone, zithromax and ceftriaxone due to elevated wbc, alb inh continue vit C, zinc, lovenox dvt prophy, pepcid has covid symptoms from 06/03, d/w , is a candidate for tocalizumab, await drug availability in pharmacy with [facility] approval crp is 16 I have discussed code status with him on 06/14/2020 and he wanted us to try everything for now d/w son and gave a full update including possible worsening and getting intubated if he desaturates 06/15, 06/16.
--- NOTE | 2020-06-16 15:54 | PRG ---
DATE OF SERVICE: 06/16/2020 SUBJECTIVE: Mr. Laurent was sitting up when I arrived in the room. He was coughing intermittently like a kind of short nagging dry cough. He was able to eat. No vomiting. No abdominal pain or diarrhea. OBJECTIVE: VITAL SIGNS: His temperature max was 100.9, June 15 and today is less, he was saturating 88 to 87 when I went into the room at 60 L high-flow nasal cannula, in a prone position it went up to 92%. LUNGS: Actually, improvement in the intensity of the inspiratory crackles that I had noticed in the past. The lungs are sounded clear than before, particularly on the left side. HEART: S1 and S2, regular rate. ABDOMEN: Soft. Not distended or tender. EXTREMITIES: Moves all extremities equally. NEUROLOGIC: Awake, oriented. LABORATORY DATA: White cell count 20.7, hemoglobin 12, platelets 285, 75% neutrophils, 7% bands. D-dimer is 0.67 on June 14. C-reactive protein, the only measurement is from the , which was 16.69. Ferritin, the only measurement was 3600, the same date. Creatinine is normal. Blood culture, no growth. ASSESSMENT AND DISCUSSION: Obesity, hypertension, hyperlipidemia, severe SARS-CoV-2 infection with high requirement for oxygen supplementation, his ROSEMARY score is right at the borderline for requiring intubation right now. He does not have a lot of space for further deterioration and ideally, he should be transferred to an area with a higher intensity of monitoring because he may decompensate at any given time and there is nobody is there to look after him, so I would consider transferring him to [facility] at least. The other options for management would be the addition of tocilizumab, but has not yet been approved by . Job ID: [id number] MTDD
[2020-06-17] MEDS: Acetaminophen 325 MG TAB PO PRN ×2 (00:48→11:51)
[2020-06-17] MEDS: Guaifenesin DM 100-10/5 ML UDCUP PO PRN (00:48)
--- NOTE | 2020-06-17 08:00 | RAD ---
EXAM: Single view of the chest HISTORY: Covid pneumonia COMPARISON: 06/13/2020 FINDINGS: Single view of the chest shows an enlarged but stable cardiomediastinal silhouette. There a re multifocal peripheral opacities in the lungs which may have slightly worsened compared to the prior examination. No acute osseous abnormality. IMPRESSION: Slight worsening of multifocal infiltrates
[2020-06-17] MEDS: Ascorbic Acid 500 mg Chewable Tablet PO SCH (08:47)
[2020-06-17] MEDS: Famotidine 20 MG TAB PO SCH ×2 (08:49→20:06)
[2020-06-17] MEDS: Zinc Sulfate 220 MG CAP PO SCH (08:50)
[2020-06-17] MEDS: Cholecalciferol 1,000 UNITS (25 MCG) TAB PO SCH (08:50)
[2020-06-17] MEDS: Dexamethasone 4 mg/ml Vial SLOW IVP SCH (08:51)
[2020-06-17] MEDS: Famotidine/PF 20 mg/2ml Vial SLOW IVP SCH ×2 (08:53→20:07)
[2020-06-17] MEDS: Enoxaparin Sodium 40 MG/0.4 ML SYRINGE SC SCH ×2 (09:23→20:06)
[2020-06-17] MEDS: Cefepime 1 GM in Sodium Chloride 0.9% 100 ML IVPB SCH ×2 (11:01→22:17)
--- NOTE | 2020-06-17 13:01 | CON ---
DATE OF CONSULTATION: HISTORY OF PRESENT ILLNESS: He was admitted on 06/13/2020 with an 11-day history of known davidson positive status. We are consulted today, 4 days into the hospital stay, because of progressive respiratory failure, he was started on Decadron 6 mg a day. X-ray shows worsening bilateral pulmonary infiltrates. His initial x-ray on the , four days ago, showed upper lung bilateral pulmonary infiltrates. He is on high-flow this morning. No coughing or wheezing. He is a nonsmoker. PAST MEDICAL HISTORY: Otherwise pertinent for hypertension, high cholesterol. PREVIOUS SURGERIES: None. HOME MEDICINE: Includes: 1. Lisinopril 20. 2. Atorvastatin 40. ALLERGIES: NONE. REVIEW OF SYSTEMS: Ten point negative. PHYSICAL EXAMINATION: VITAL SIGNS: Temperature 100.4, pulse 75, respiratory rate 22, sats 90% on high-flow 75% FiO2, 55% flow rate, blood pressure 140/72. CHEST: No wheezing. No crackles. CARDIAC: Normal S1, S2. ABDOMEN: No masses. ASSESSMENT: Davidson positive pneumonia, day 14 in the course of his disease. He is not a candidate for either remdesivir or convalescent plasma. He was seen by Infectious Disease. I increased the dose of Decadron. I started broad-spectrum antibiotics for presumed secondary infection. Prognosis remains guarded. Consultation note, 70 minutes, 50% in direct patient care. Job ID: [id number]
--- NOTE | 2020-06-17 15:05 | PDOC.HOSPP ---
- Subjective Encounter Date: 06/17/20 Encounter Time: 08:00 Subjective: breathing comfortable on high flow O2 has cough, no chest pain is mobilizing to bedside commode and tries to exercise on bed including spirometry - Objective Vital Signs & Weight: Vital Signs (12 hours) Temp Pulse Resp BP BP Pulse Ox 06/17/20 11:51 100.0 F H 126/71 06/17/20 11:22 100.0 F H 74 18 132/69 94 L 06/17/20 08:00 90 L 06/17/20 07:47 100.4 F H 75 22 H 142/75 H 90 L 06/17/20 04:00 66 20 133/74 94 L 06/17/20 03:20 89 L 06/17/20 03:14 70 L Weight Weight 216 lb 8 oz I&O: 06/16/20 06/17/20 06/18/20 06:59 06:59 06:59 Intake Total 1010 960 Output Total 1000 700 Balance -1000 310 960 Result Diagrams: 06/16/20 06:18 06/16/20 06:18 Hospitalist ROS - Medication Medications: Active Medications Generic Name Dose Route Start Last Admin Trade Name Freq PRN Reason Stop Dose Admin Acetaminophen 650 mg 06/13/20 12:24 06/17/20 11:51 Acetaminophen 325 Mg Tab PO 650 mg Q4H PRN Administration Headache/Fever/Mild Pain (1-3) Albuterol Sulfate 2 puff 06/14/20 20:04 06/15/20 04:06 Albuterol 200 Puff (6.7gm Inhaler) INH 2 puff Q4H PRN Administration Wheezing Ascorbic Acid 1,000 mg 06/14/20 09:00 06/17/20 08:47 Ascorbic Acid 500 Mg Chewable Tablet PO 1,000 mg DAILY RENAE Administration Cholecalciferol 5,000 units 06/14/20 09:00 06/17/20 08:50 Cholecalciferol 1,000 Units (25 Mcg) Tab PO 5,000 units DAILY RENAE Administration Dexamethasone 6 mg 06/14/20 09:00 06/17/20 08:51 Dexamethasone 4 Mg/Ml Vial SLOW IVP 6 mg DAILY RENAE Administration Enoxaparin Sodium 40 mg 06/13/20 21:00 06/17/20 09:23 Enoxaparin Sodium 40 Mg/0.4 Ml Syringe SC 40 mg 0900,2100 RENAE Administration Famotidine 20 mg 06/13/20 21:00 06/17/20 08:49 Famotidine 20 Mg Tab PO 20 mg BID RENAE Administration Famotidine 20 mg 06/13/20 21:00 06/17/20 08:53 Famotidine/Pf 20 Mg/2ml Vial SLOW IVP Not Given Q12HR RENAE Guaifenesin/Dextromethorphan 15 ml 06/13/20 12:24 06/17/20 00:48 Guaifenesin Dm 100-10/5 Ml Udcup PO 15 ml Q4H PRN Administration Cough Cefepime HCl 1 gm/ Sodium 100 mls @ 200 mls/hr 06/17/20 11:00 06/17/20 11:01 Chloride IVPB 06/26/20 23:29 100 mls 1100,2300 RENAE Administration Doxycycline Hyclate 100 mg/ 100 mls @ 100 mls/hr 06/17/20 11:00 06/17/20 11:40 Sodium Chloride IVPB 06/26/20 23:59 100 mls 1100,2300 RENAE Administration Zinc Sulfate 220 mg 06/14/20 09:00 06/17/20 08:50 Zinc Sulfate 220 Mg Cap PO 220 mg DAILY RENAE Administration - Exam General Appearance: awake alert Eye: PERRL, anicteric sclera ENT: no oropharyngeal lesions, moist mucosa Neck: supple, no JVD Heart: RRR, no murmur Respiratory: no wheezes, rales, rhonchi Gastrointestinal: soft, non-tender, non-distended, normal bowel sounds Extremities: no cyanosis, no edema Neurological: cranial nerve grossly intact, no focal deficits Psychiatric: normal affect, A&O x 3 Hosp A/P (1) Acute respiratory failure with hypoxia Code(s): J96.01 - ACUTE RESPIRATORY FAILURE WITH HYPOXIA Status: Acute (2) Pneumonia due to COVID-19 virus Code(s): U07.1 - COVID-19; J12.82 - PNEUMONIA DUE TO CORONAVIRUS DISEASE 2019 Status: Acute (3) Sepsis Code(s): A41.9 - SEPSIS, UNSPECIFIED ORGANISM Status: Acute Qualifiers: Sepsis type: sepsis due to unspecified organism (4) Hyperlipidemia Code(s): E78.5 - HYPERLIPIDEMIA, UNSPECIFIED Status: Chronic Qualifiers: Hyperlipidemia type: unspecified Qualified Code(s): E78.5 - Hyperlipidemia, unspecified (5) Hypertension Code(s): I10 - ESSENTIAL (PRIMARY) HYPERTENSION Status: Chronic Qualifiers: Hypertension type: essential hypertension Qualified Code(s): I10 - Essential (primary) hypertension (6) Obesity (BMI 30.0-34.9) Code(s): E66.9 - OBESITY, UNSPECIFIED Status: Chronic - Plan is on high flow O2, dexamethasone, cefepime and doxy due to elevated wbc, alb inh continue vit C, zinc, lovenox dvt prophy, pepcid has covid symptoms from 06/03, d/w , is a candidate for tocalizumab, await drug availability in pharmacy with [facility] approval I have discussed code status with him on 06/14/2020 and he wanted us to try everything for now d/w son and gave a full update including possible worsening and getting intubated if he desaturates 06/15, 06/16, 04/17. prognosis guarded
[2020-06-17] MEDS: Mometasone 200 MCG/Formoterol 5 MCG 120 PUFF INHALER INH SCH (21:16)
[2020-06-18] MEDS: Mometasone 200 MCG/Formoterol 5 MCG 120 PUFF INHALER INH SCH ×2 (06:15→17:58)
[2020-06-18] MEDS: Dexamethasone 4 mg/ml Vial SLOW IVP SCH (08:06)
[2020-06-18] MEDS: Enoxaparin Sodium 40 MG/0.4 ML SYRINGE SC SCH ×2 (08:06→20:30)
[2020-06-18] MEDS: Cholecalciferol 1,000 UNITS (25 MCG) TAB PO SCH (08:06)
[2020-06-18] MEDS: Ascorbic Acid 500 mg Chewable Tablet PO SCH (08:07)
[2020-06-18] MEDS: Famotidine 20 MG TAB PO SCH ×2 (08:07→20:30)
[2020-06-18] MEDS: Zinc Sulfate 220 MG CAP PO SCH (08:07)
[2020-06-18] MEDS: Famotidine/PF 20 mg/2ml Vial SLOW IVP SCH ×2 (08:07→20:31)
[2020-06-18 08:19] LABS: Hemoglobin 12.5 g/dL (14.0-18.0); Mean Corpuscular HGB CONC 31.8 g/dL (32.0-36.0); Mean Corpuscular Hemoglobin 27.8 pg (27.0-31.0); Mean Corpuscular Volume 87.3 fL (78.0-98.0); Mean Platelet Volume 9.9 fL (7.4-10.4); Platelet Count 324 thou/uL (130-400); RBC Distribution Width 12.5 % (11.5-14.5); Red Blood Cell (RBC) Count 4.51 mill/uL (4.70-6.10); White Blood Cell (WBC) Count 22.2 thou/uL (4.8-10.8)
[2020-06-18 08:42] LABS: ALT (SGPT) 172 U/L (8-55); AST (SGOT) 55 U/L (5-34); Albumin 3.4 g/dL (3.5-5.0); Alkaline Phosphatase 86 U/L (40-110); Anion Gap 14 mmol/L (10-20); BUN (Urea Nitrogen) 19 mg/dL (8.4-25.7); Bilirubin, Total 0.8 mg/dL (0.2-1.2); CRP (Inflammatory) 11.51 mg/dL (= or < 0.5); Calc. Creatinine Clearance 138 mL/min (70-130); Calcium 8.7 mg/dL (7.8-10.44); Carbon Dioxide 24 mmol/L (22-29); Chloride 103 mmol/L (98-107); Globulin 4.4 g/dL (2.4-3.5); Glucose 106 mg/dL (70-105); Potassium 4.4 mmol/L (3.5-5.1); Protein, Total 7.8 g/dL (6.0-8.3); Sodium 137 mmol/L (136-145)
[2020-06-18 09:58] LABS: Band 8 % (5-11); Eosinophils 1 % (0-10); Lymphocytes 6 % (21-51); MDiff Complete? YES; Metamyelocyte 6 % (0-0); Monocytes 12 % (0-10); Myelocyte 6 % (0-0); Neutrophil 61 % (42-75); Platelet Morphology Comment Appears Adequate; Polychromasia SLIGHT = 2-3 cells (100X) (0-2/hpf)
[2020-06-18] MEDS: Cefepime 1 GM in Sodium Chloride 0.9% 100 ML IVPB SCH (10:17)
--- NOTE | 2020-06-18 12:25 | PRG ---
DATE OF SERVICE: 06/18/2020 SUBJECTIVE: Ankit Laurent this morning is awake, alert, and responsive. OBJECTIVE: VITAL SIGNS: His temperature is 98.7, respiratory rate 20, sats 90% on flow rate of 50 at 47%, blood pressure 137/74. CHEST: No wheezing, no crackles. CARDIAC: Normal S1, S2. ASSESSMENT: Jones positive pneumonia, respiratory failure. Continue present treatment. Job ID: [id number]
--- NOTE | 2020-06-18 15:23 | PDOC.HOSPP ---
- Subjective Encounter Date: 06/18/20 Encounter Time: 08:45 Subjective: is comfortable on high flow O2 got his high flow disconnected while lying prone last night ?3 hrs, if fully oriented and has no sob - Objective Vital Signs & Weight: Vital Signs (12 hours) Temp Pulse Resp BP Pulse Ox 06/18/20 13:33 92 L 06/18/20 11:49 98 F 71 20 134/74 93 L 06/18/20 10:31 94 L 06/18/20 08:00 96 06/18/20 07:43 98.1 F 63 22 H 132/82 93 L 06/18/20 06:37 97.6 F 59 L 20 118/75 96 Weight Weight 216 lb 8 oz I&O: 06/17/20 06/18/20 06/19/20 06:59 06:59 06:59 Intake Total 1010 1440 Output Total 700 1500 Balance 310 -60 Result Diagrams: 06/18/20 07:47 06/18/20 07:47 Hospitalist ROS - Medication Medications: Active Medications Generic Name Dose Route Start Last Admin Trade Name Freq PRN Reason Stop Dose Admin Acetaminophen 650 mg 06/13/20 12:24 06/17/20 11:51 Acetaminophen 325 Mg Tab PO 650 mg Q4H PRN Administration Headache/Fever/Mild Pain (1-3) Albuterol Sulfate 2 puff 06/14/20 20:04 06/15/20 04:06 Albuterol 200 Puff (6.7gm Inhaler) INH 2 puff Q4H PRN Administration Wheezing Ascorbic Acid 1,000 mg 06/14/20 09:00 06/18/20 08:07 Ascorbic Acid 500 Mg Chewable Tablet PO 1,000 mg DAILY RENAE Administration Cholecalciferol 5,000 units 06/14/20 09:00 06/18/20 08:06 Cholecalciferol 1,000 Units (25 Mcg) Tab PO 5,000 units DAILY RENAE Administration Dexamethasone 6 mg 06/14/20 09:00 06/18/20 08:06 Dexamethasone 4 Mg/Ml Vial SLOW IVP 6 mg DAILY RENAE Administration Enoxaparin Sodium 40 mg 06/13/20 21:00 06/18/20 08:06 Enoxaparin Sodium 40 Mg/0.4 Ml Syringe SC 40 mg 0900,2099 RENAE Administration Famotidine 20 mg 06/13/20 21:00 06/18/20 08:07 Famotidine 20 Mg Tab PO 20 mg BID RENAE Administration Famotidine 20 mg 06/13/20 21:00 06/18/20 08:07 Famotidine/Pf 20 Mg/2ml Vial SLOW IVP Not Given Q12HR RENAE Guaifenesin/Dextromethorphan 15 ml 06/13/20 12:24 06/17/20 00:48 Guaifenesin Dm 100-10/5 Ml Udcup PO 15 ml Q4H PRN Administration Cough Cefepime HCl 1 gm/ Sodium 100 mls @ 200 mls/hr 06/17/20 11:00 06/18/20 10:17 Chloride IVPB 06/26/20 23:29 100 mls 1100,2300 RENAE Administration Doxycycline Hyclate 100 mg/ 100 mls @ 100 mls/hr 06/17/20 11:00 06/18/20 11:13 Sodium Chloride IVPB 06/26/20 23:59 100 mls 1100,2300 RENAE Administration Mometasone Furoate/Formoterol Fumar 2 puff 06/17/20 18:30 06/18/20 06:15 Mometasone 200 Mcg/Formoterol 5 Mcg 120 Puff Inhaler INH 2 puff BID-RT RENAE Administration Zinc Sulfate 220 mg 06/14/20 09:00 06/18/20 08:07 Zinc Sulfate 220 Mg Cap PO 220 mg DAILY RENAE Administration - Exam General Appearance: awake alert Eye: PERRL, anicteric sclera ENT: no oropharyngeal lesions, moist mucosa Neck: supple, no JVD Heart: RRR, no murmur Respiratory: no wheezes, rales, rhonchi Gastrointestinal: soft, non-tender, non-distended, normal bowel sounds Extremities: no cyanosis, no edema Neurological: cranial nerve grossly intact, no focal deficits Psychiatric: normal affect, A&O x 3 Hosp A/P (1) Acute respiratory failure with hypoxia Code(s): J96.01 - ACUTE RESPIRATORY FAILURE WITH HYPOXIA Status: Acute (2) Pneumonia due to COVID-19 virus Code(s): U07.1 - COVID-19; J12.82 - PNEUMONIA DUE TO CORONAVIRUS DISEASE 2019 Status: Acute (3) Sepsis Code(s): A41.9 - SEPSIS, UNSPECIFIED ORGANISM Status: Acute Qualifiers: Sepsis type: sepsis due to unspecified organism (4) Hyperlipidemia Code(s): E78.5 - HYPERLIPIDEMIA, UNSPECIFIED Status: Chronic Qualifiers: Hyperlipidemia type: unspecified Qualified Code(s): E78.5 - Hyperlipidemia, unspecified (5) Hypertension Code(s): I10 - ESSENTIAL (PRIMARY) HYPERTENSION Status: Chronic Qualifiers: Hypertension type: essential hypertension Qualified Code(s): I10 - Essential (primary) hypertension (6) Obesity (BMI 30.0-34.9) Code(s): E66.9 - OBESITY, UNSPECIFIED Status: Chronic - Plan is on high flow O2, dexamethasone, cefepime and doxy due to elevated wbc, alb inh continue vit C, zinc, lovenox dvt prophy, pepcid has covid symptoms from 06/03, d/w , is a candidate for tocalizumab, await drug availability in pharmacy with [facility] approval I have discussed code status with him on 06/14/2020 and he wanted us to try everything for now d/w son and gave a full update including possible worsening and getting intubated if he desaturates 06/15, 06/16, 06/17, 06/18. prognosis guarded
[2020-06-19] MEDS: Cefepime 1 GM in Sodium Chloride 0.9% 100 ML IVPB SCH ×3 (00:24→22:35)
[2020-06-19] MEDS: Mometasone 200 MCG/Formoterol 5 MCG 120 PUFF INHALER INH SCH ×2 (06:03→18:29)
[2020-06-19 06:47] LABS: Hemoglobin 12.9 g/dL (14.0-18.0); Mean Corpuscular HGB CONC 32.9 g/dL (32.0-36.0); Mean Corpuscular Hemoglobin 28.3 pg (27.0-31.0); Mean Corpuscular Volume 85.9 fL (78.0-98.0); Mean Platelet Volume 9.6 fL (7.4-10.4); Platelet Count 358 thou/uL (130-400); RBC Distribution Width 12.6 % (11.5-14.5); Red Blood Cell (RBC) Count 4.57 mill/uL (4.70-6.10); White Blood Cell (WBC) Count 21.7 thou/uL (4.8-10.8)
[2020-06-19 07:07] LABS: ALT (SGPT) 174 U/L (8-55); AST (SGOT) 49 U/L (5-34); Albumin 3.3 g/dL (3.5-5.0); Alkaline Phosphatase 80 U/L (40-110); Anion Gap 14 mmol/L (10-20); BUN (Urea Nitrogen) 24 mg/dL (8.4-25.7); Bilirubin, Total 0.8 mg/dL (0.2-1.2); Calc. Creatinine Clearance 140 mL/min (70-130); Calcium 8.7 mg/dL (7.8-10.44); Carbon Dioxide 23 mmol/L (22-29); Chloride 104 mmol/L (98-107); Globulin 4.4 g/dL (2.4-3.5); Glucose 100 mg/dL (70-105); Potassium 4.6 mmol/L (3.5-5.1); Protein, Total 7.7 g/dL (6.0-8.3); Sodium 136 mmol/L (136-145)
[2020-06-19] MEDS: Dexamethasone 4 mg/ml Vial SLOW IVP SCH (07:49)
[2020-06-19] MEDS: Enoxaparin Sodium 40 MG/0.4 ML SYRINGE SC SCH ×2 (07:49→22:35)
[2020-06-19] MEDS: Cholecalciferol 1,000 UNITS (25 MCG) TAB PO SCH (07:50)
[2020-06-19] MEDS: Ascorbic Acid 500 mg Chewable Tablet PO SCH (07:50)
[2020-06-19] MEDS: Zinc Sulfate 220 MG CAP PO SCH (07:50)
[2020-06-19] MEDS: Famotidine 20 MG TAB PO SCH (07:50)
[2020-06-19] MEDS: Famotidine/PF 20 mg/2ml Vial SLOW IVP SCH ×2 (07:51→22:35)
[2020-06-19 09:06] LABS: Band 11 % (5-11); Eosinophils 1 % (0-10); Lymphocytes 11 % (21-51); MDiff Complete? YES; Monocytes 7 % (0-10); Myelocyte 4 % (0-0); Neutrophil 58 % (42-75); Platelet Morphology Comment Appears Adequate; RBC Morphology Normal; Reactive Lymphocytes 8 % (0-10)
--- NOTE | 2020-06-19 12:02 | PRG ---
DATE OF SERVICE: 06/19/2020 SUBJECTIVE: Ankit Laurent is sitting on the side of the bed . OBJECTIVE: VITAL SIGNS: He is on nasal O2 96%_ blood pressure 119/73. CHEST: No wheezing. No crackles. CARDIAC: Normal S1, S2. LABORATORY DATA: White count 21,000. Slight left shift. Slightly elevated liver function. ASSESSMENT: Respiratory: Jones positive pneumonia. He is on broad-spectrum antibiotics, doxycycline and steroids. We will follow. He is encouraged to walk in the room. Job ID: [id number]
--- NOTE | 2020-06-19 15:05 | PDOC.HOSPP ---
- Subjective Encounter Date: 06/19/20 Encounter Time: 09:00 Subjective: feels better is on nasal canula now eating well, is trying to walk and sit in chair in the room - Objective Vital Signs & Weight: Vital Signs (12 hours) Temp Pulse Resp BP Pulse Ox 06/19/20 11:09 97.8 F 71 20 112/69 95 06/19/20 08:00 95 06/19/20 07:19 97.9 F 57 L 18 119/73 57 L 06/19/20 04:58 97.5 F L 54 L 16 136/84 100 Weight Weight 216 lb 8 oz I&O: 06/18/20 06/19/20 06/20/20 06:59 06:59 06:59 Intake Total 1440 Output Total 1500 Balance -60 Result Diagrams: 06/19/20 06:24 06/19/20 06:24 Hospitalist ROS - Medication Medications: Active Medications Generic Name Dose Route Start Last Admin Trade Name Freq PRN Reason Stop Dose Admin Acetaminophen 650 mg 06/13/20 12:24 06/17/20 11:51 Acetaminophen 325 Mg Tab PO 650 mg Q4H PRN Administration Headache/Fever/Mild Pain (1-3) Albuterol Sulfate 2 puff 06/14/20 20:04 06/15/20 04:06 Albuterol 200 Puff (6.7gm Inhaler) INH 2 puff Q4H PRN Administration Wheezing Ascorbic Acid 1,000 mg 06/14/20 09:00 06/19/20 07:50 Ascorbic Acid 500 Mg Chewable Tablet PO 1,000 mg DAILY RENAE Administration Cholecalciferol 5,000 units 06/14/20 09:00 06/19/20 07:50 Cholecalciferol 1,000 Units (25 Mcg) Tab PO 5,000 units DAILY RENAE Administration Enoxaparin Sodium 40 mg 06/13/20 21:00 06/19/20 07:49 Enoxaparin Sodium 40 Mg/0.4 Ml Syringe SC 40 mg 09,2099 RENAE Administration Famotidine 20 mg 06/13/20 21:00 06/19/20 07:50 Famotidine 20 Mg Tab PO 20 mg BID RENAE Administration Famotidine 20 mg 06/13/20 21:00 06/19/20 07:51 Famotidine/Pf 20 Mg/2ml Vial SLOW IVP Not Given Q12HR RENAE Guaifenesin/Dextromethorphan 15 ml 06/13/20 12:24 06/17/20 00:48 Guaifenesin Dm 100-10/5 Ml Udcup PO 15 ml Q4H PRN Administration Cough Cefepime HCl 1 gm/ Sodium 100 mls @ 200 mls/hr 06/17/20 11:00 06/19/20 10:54 Chloride IVPB 06/26/20 23:29 100 mls 1100,2300 RENAE Administration Doxycycline Hyclate 100 mg/ 100 mls @ 100 mls/hr 06/17/20 11:00 06/19/20 11:56 Sodium Chloride IVPB 06/26/20 23:59 100 mls 1100,2300 RENAE Administration Mometasone Furoate/Formoterol Fumar 2 puff 06/17/20 18:30 06/19/20 06:03 Mometasone 200 Mcg/Formoterol 5 Mcg 120 Puff Inhaler INH 2 puff BID-RT RENAE Administration Zinc Sulfate 220 mg 06/14/20 09:00 06/19/20 07:50 Zinc Sulfate 220 Mg Cap PO 220 mg DAILY RENAE Administration - Exam General Appearance: awake alert Eye: PERRL, anicteric sclera ENT: no oropharyngeal lesions, moist mucosa Neck: supple, no JVD Heart: RRR, no murmur Respiratory: no wheezes, rales, rhonchi Gastrointestinal: soft, non-tender, non-distended, normal bowel sounds Extremities: no cyanosis, no edema Neurological: cranial nerve grossly intact, no focal deficits Psychiatric: normal affect, A&O x 3 Hosp A/P (1) Acute respiratory failure with hypoxia Code(s): J96.01 - ACUTE RESPIRATORY FAILURE WITH HYPOXIA Status: Acute (2) Pneumonia due to COVID-19 virus Code(s): U07.1 - COVID-19; J12.82 - PNEUMONIA DUE TO CORONAVIRUS DISEASE 2019 Status: Acute (3) Sepsis Code(s): A41.9 - SEPSIS, UNSPECIFIED ORGANISM Status: Resolved Qualifiers: Sepsis type: sepsis due to unspecified organism (4) Hyperlipidemia Code(s): E78.5 - HYPERLIPIDEMIA, UNSPECIFIED Status: Chronic Qualifiers: Hyperlipidemia type: unspecified Qualified Code(s): E78.5 - Hyperlipidemia, unspecified (5) Hypertension Code(s): I10 - ESSENTIAL (PRIMARY) HYPERTENSION Status: Chronic Qualifiers: Hypertension type: essential hypertension Qualified Code(s): I10 - Essential (primary) hypertension (6) Obesity (BMI 30.0-34.9) Code(s): E66.9 - OBESITY, UNSPECIFIED Status: Chronic - Plan is on nasal canula 6lts O2, dexamethasone, cefepime and doxy due to elevated wbc, alb inh continue vit C, zinc, lovenox dvt prophy, pepcid has covid symptoms from 06/03, d/w , is a candidate for tocalizumab, await drug availability in pharmacy with [facility] approval I have discussed code status with him on 06/14/2020 and he wanted us to try everything for now d/w son and gave a full update including possible worsening and getting intubated if he desaturates 06/15, 06/16, 06/17, 06/18, 06/19. prognosis guarded
[2020-06-20 06:28] LABS: Hemoglobin 13.1 g/dL (14.0-18.0); Mean Corpuscular HGB CONC 30.9 g/dL (32.0-36.0); Mean Corpuscular Hemoglobin 26.7 pg (27.0-31.0); Mean Corpuscular Volume 86.3 fL (78.0-98.0); Mean Platelet Volume 9.4 fL (7.4-10.4); Platelet Count 381 thou/uL (130-400); RBC Distribution Width 12.8 % (11.5-14.5); Red Blood Cell (RBC) Count 4.91 mill/uL (4.70-6.10); White Blood Cell (WBC) Count 23.7 thou/uL (4.8-10.8)
[2020-06-20 06:43] LABS: ALT (SGPT) 169 U/L (8-55); AST (SGOT) 39 U/L (5-34); Albumin 3.5 g/dL (3.5-5.0); Alkaline Phosphatase 74 U/L (40-110); Anion Gap 14 mmol/L (10-20); BUN (Urea Nitrogen) 26 mg/dL (8.4-25.7); Bilirubin, Total 0.9 mg/dL (0.2-1.2); Calc. Creatinine Clearance 135 mL/min (70-130); Calcium 8.7 mg/dL (7.8-10.44); Carbon Dioxide 22 mmol/L (22-29); Chloride 102 mmol/L (98-107); Globulin 4.1 g/dL (2.4-3.5); Glucose 91 mg/dL (70-105); Potassium 4.3 mmol/L (3.5-5.1); Protein, Total 7.6 g/dL (6.0-8.3); Sodium 134 mmol/L (136-145)
[2020-06-20 08:16] LABS: Band 15 % (5-11); Hypochromia SLIGHT = 6-15 cells (100X) (0-5/hpf); Lymphocytes 25 % (21-51); MDiff Complete? YES; Metamyelocyte 2 % (0-0); Monocytes 4 % (0-10); Myelocyte 9 % (0-0); Neutrophil 43 % (42-75); Platelet Morphology Comment Appears Adequate; Polychromasia SLIGHT = 2-3 cells (100X) (0-2/hpf); Reactive Lymphocytes 2 % (0-10); Vacuoles MODERATE
--- NOTE | 2020-06-20 10:10 | PRG ---
DATE OF SERVICE: 06/20/2020 SUBJECTIVE: Ankit Laurent is a 59-year-old gentleman remains in the hospital. OBJECTIVE: VITAL SIGNS: Temperature 98, pulse 64, respiratory rate 24, saturations are 90% on nasal O2, blood pressure 114/72. All his cultures are negative. CHEST: No wheezing. No crackles. CARDIAC: Normal S1 and S2. No gallops. ABDOMEN: Soft. LABORATORY DATA: White count 23,000 with bands. Big left shift. C-reactive protein 2.46. ASSESSMENT: 1. Jones positive pneumonia. 2. Respiratory failure, slowly improving. PLAN: I would empirically start him on broad-spectrum antibiotics. He is now on p.o. prednisone. Once his white count decreases, he may be able to get discharged home. Otherwise, continue supportive care. Job ID: [id number]
[2020-06-20] MEDS: Famotidine/PF 20 mg/2ml Vial SLOW IVP SCH ×2 (10:20→22:48)
[2020-06-20] MEDS: Mometasone 200 MCG/Formoterol 5 MCG 120 PUFF INHALER INH SCH ×2 (10:23→17:42)
[2020-06-20] MEDS: Zinc Sulfate 220 MG CAP PO SCH (10:23)
[2020-06-20] MEDS: Ascorbic Acid 500 mg Chewable Tablet PO SCH (10:24)
[2020-06-20] MEDS: Cholecalciferol 1,000 UNITS (25 MCG) TAB PO SCH (10:24)
[2020-06-20] MEDS: Enoxaparin Sodium 40 MG/0.4 ML SYRINGE SC SCH ×2 (10:25→22:49)
[2020-06-20] MEDS: Cefepime 1 GM in Sodium Chloride 0.9% 100 ML IVPB SCH ×2 (10:25→22:48)
[2020-06-20] MEDS: predniSONE 20 MG TAB PO SCH (10:25)
--- NOTE | 2020-06-20 14:59 | PDOC.HOSPP ---
- Subjective Encounter Date: 06/20/20 Encounter Time: 08:45 Subjective: is on nasal canula 3 lts now, doing well is actively walking in room - Objective Vital Signs & Weight: Vital Signs (12 hours) Temp Pulse Resp BP Pulse Ox 06/20/20 12:42 97.8 F 62 20 108/69 95 06/20/20 12:00 97.8 F 62 20 108/68 95 06/20/20 08:19 98.0 F 64 24 H 115/72 99 06/20/20 08:00 98.0 F 62 24 H 115/72 96 Weight Weight 216 lb 8 oz Result Diagrams: 06/20/20 06:08 06/20/20 06:08 Hospitalist ROS - Medication Medications: Active Medications Generic Name Dose Route Start Last Admin Trade Name Freq PRN Reason Stop Dose Admin Acetaminophen 650 mg 06/13/20 12:24 06/17/20 11:51 Acetaminophen 325 Mg Tab PO 650 mg Q4H PRN Administration Headache/Fever/Mild Pain (1-3) Albuterol Sulfate 2 puff 06/14/20 20:04 06/15/20 04:06 Albuterol 200 Puff (6.7gm Inhaler) INH 2 puff Q4H PRN Administration Wheezing Ascorbic Acid 1,000 mg 06/14/20 09:00 06/20/20 10:24 Ascorbic Acid 500 Mg Chewable Tablet PO 1,000 mg DAILY RENAE Administration Cholecalciferol 5,000 units 06/14/20 09:00 06/20/20 10:24 Cholecalciferol 1,000 Units (25 Mcg) Tab PO 5,000 units DAILY RENAE Administration Enoxaparin Sodium 40 mg 06/13/20 21:00 06/20/20 10:25 Enoxaparin Sodium 40 Mg/0.4 Ml Syringe SC 40 mg 0900,2100 RENAE Administration Famotidine 20 mg 06/13/20 21:00 06/20/20 10:20 Famotidine/Pf 20 Mg/2ml Vial SLOW IVP 20 mg Q12HR RENAE Administration Guaifenesin/Dextromethorphan 15 ml 06/13/20 12:24 06/17/20 00:48 Guaifenesin Dm 100-10/5 Ml Udcup PO 15 ml Q4H PRN Administration Cough Cefepime HCl 1 gm/ Sodium 100 mls @ 200 mls/hr 06/17/20 11:00 06/20/20 10:25 Chloride IVPB 06/26/20 23:29 100 mls 1100,2300 RENAE Administration Doxycycline Hyclate 100 mg/ 100 mls @ 100 mls/hr 06/17/20 11:00 06/20/20 12:17 Sodium Chloride IVPB 06/26/20 23:59 100 mls 1100,2300 RENAE Administration Mometasone Furoate/Formoterol Fumar 2 puff 06/17/20 18:30 06/20/20 10:23 Mometasone 200 Mcg/Formoterol 5 Mcg 120 Puff Inhaler INH Not Given BID-RT RENAE Pantoprazole Sodium 40 mg 06/20/20 09:00 06/20/20 10:23 Pantoprazole 40 Mg Tab PO 40 mg DAILY RENAE Administration Prednisone 40 mg 06/20/20 08:00 06/20/20 10:25 Prednisone 20 Mg Tab PO 40 mg QAM-WM RENAE Administration Zinc Sulfate 220 mg 06/14/20 09:00 06/20/20 10:23 Zinc Sulfate 220 Mg Cap PO 220 mg DAILY RENAE Administration - Exam General Appearance: awake alert Eye: PERRL, anicteric sclera ENT: no oropharyngeal lesions, moist mucosa Neck: supple, no JVD Heart: RRR, no murmur Respiratory: no wheezes, rales, rhonchi Gastrointestinal: soft, non-tender, non-distended, normal bowel sounds Extremities: no cyanosis, no edema Neurological: cranial nerve grossly intact, no focal deficits Psychiatric: normal affect, A&O x 3 Hosp A/P (1) Acute respiratory failure with hypoxia Code(s): J96.01 - ACUTE RESPIRATORY FAILURE WITH HYPOXIA Status: Acute (2) Pneumonia due to COVID-19 virus Code(s): U07.1 - COVID-19; J12.82 - PNEUMONIA DUE TO CORONAVIRUS DISEASE 2019 Status: Acute (3) Sepsis Code(s): A41.9 - SEPSIS, UNSPECIFIED ORGANISM Status: Resolved Qualifiers: Sepsis type: sepsis due to unspecified organism (4) Hyperlipidemia Code(s): E78.5 - HYPERLIPIDEMIA, UNSPECIFIED Status: Chronic Qualifiers: Hyperlipidemia type: unspecified Qualified Code(s): E78.5 - Hyperlipidemia, unspecified (5) Hypertension Code(s): I10 - ESSENTIAL (PRIMARY) HYPERTENSION Status: Chronic Qualifiers: Hypertension type: essential hypertension Qualified Code(s): I10 - Essential (primary) hypertension (6) Obesity (BMI 30.0-34.9) Code(s): E66.9 - OBESITY, UNSPECIFIED Status: Chronic - Plan is on nasal canula 3lts O2, dexamethasone, cefepime and doxy due to elevated wbc (no response to antibiotic likely due to steroids/infla response), alb inh continue vit C, zinc, lovenox dvt prophy, protonix has covid symptoms from 06/03 I have discussed code status with him on 06/14/2020 and he wanted us to try everyt kristal for now d/w son and gave a full update including possible worsening and getting intubated if he desaturates 06/15, 06/16, 06/17, 06/18, 06/19, 06/20. has shown consistent/remarkable improvement clinically, crp is trending down, and is on tapering O2, he will need home O2 2 or 3 lts by [place] for dc plan. (on arrival had extensive infiltrates and was on high flow plus very to close to getting intubated) hemostable
--- NOTE | 2020-06-20 15:12 | PRG ---
DATE OF SERVICE: 06/20/2020 SUBJECTIVE: Mr. Laurent has improved quite significantly. He is walking around. His nasal cannula O2 was not placed properly and I repositioned it and he was saturating at 95 to 97. He is still coughing quite frequently, but not as much as before, still tachypneic. His temperature has normalized and he is saturating at 96 to 97 with 3 L nasal cannula O2, which is a marked improvement compared with the high-flow requirements that he had before. OBJECTIVE: LUNGS: Very clear, which is also a significant improvement. HEART: Normal. ABDOMEN: Soft, nondistended. NEUROLOGIC: Nonfocal. LABORATORY DATA: His white cell count is 23.7 and that is most likely steroid-related. He does have a little bit of bands at 15 and his creatinine is 0.82 and a marked improvement in C-reactive protein from 16 to 2.46. We do not have repeat imaging study. ASSESSMENT AND DISCUSSION: Obesity, hypertension, hyperlipidemia, severe SARS-CoV-2 infection with marked improvement on steroids. He has doxycycline and cefepime added to his regimen. Probably, he does not need that. He is on prednisone right now. His ROSEMARY score is up to 14.55, which is obviously expected, so I think that he is getting close to discharge planning here and quite a remarkable turnaround for somebody who initially was heading towards intubation. Job ID: [id number]
[2020-06-21 07:26] LABS: ALT (SGPT) 160 U/L (8-55); AST (SGOT) 36 U/L (5-34); Albumin 3.2 g/dL (3.5-5.0); Alkaline Phosphatase 79 U/L (40-110); Anion Gap 17 mmol/L (10-20); BUN (Urea Nitrogen) 26 mg/dL (8.4-25.7); Bilirubin, Total 0.6 mg/dL (0.2-1.2); Calc. Creatinine Clearance 138 mL/min (70-130); Calcium 8.3 mg/dL (7.8-10.44); Carbon Dioxide 18 mmol/L (22-29); Chloride 106 mmol/L (98-107); Globulin 3.8 g/dL (2.4-3.5); Glucose 118 mg/dL (70-105); Potassium 4.1 mmol/L (3.5-5.1); Sodium 137 mmol/L (136-145)
[2020-06-21 07:45] LABS: Band 5 % (5-11); Eosinophils 1 % (0-10); Hemoglobin 12.7 g/dL (14.0-18.0); Lymphocytes 13 % (21-51); MDiff Complete? YES; Mean Corpuscular HGB CONC 33.1 g/dL (32.0-36.0); Mean Corpuscular Hemoglobin 28.4 pg (27.0-31.0); Mean Corpuscular Volume 85.9 fL (78.0-98.0); Mean Platelet Volume 9.8 fL (7.4-10.4); Monocytes 11 % (0-10); Neutrophil 70 % (42-75); Platelet Count 328 thou/uL (130-400); RBC Distribution Width 12.6 % (11.5-14.5); Red Blood Cell (RBC) Count 4.49 mill/uL (4.70-6.10); White Blood Cell (WBC) Count 24.7 thou/uL (4.8-10.8)
[2020-06-21] MEDS: Enoxaparin Sodium 40 MG/0.4 ML SYRINGE SC SCH ×2 (09:45→21:16)
[2020-06-21] MEDS: Mometasone 200 MCG/Formoterol 5 MCG 120 PUFF INHALER INH SCH ×2 (09:46→18:37)
[2020-06-21] MEDS: predniSONE 20 MG TAB PO SCH (09:47)
[2020-06-21] MEDS: Zinc Sulfate 220 MG CAP PO SCH (09:47)
[2020-06-21] MEDS: Famotidine/PF 20 mg/2ml Vial SLOW IVP SCH ×2 (09:47→21:16)
[2020-06-21] MEDS: Cholecalciferol 1,000 UNITS (25 MCG) TAB PO SCH (09:47)
[2020-06-21] MEDS: Ascorbic Acid 500 mg Chewable Tablet PO SCH (09:48)
[2020-06-21] MEDS: Cefepime 1 GM in Sodium Chloride 0.9% 100 ML IVPB SCH ×2 (09:48→23:19)
--- NOTE | 2020-06-21 15:13 | EKG ---
Test Reason : Blood Pressure : / mmHG Vent. Rate : 098 BPM Atrial Rate : 098 BPM P-R Int : 128 ms QRS Dur : 098 ms QT Int : 348 ms P-R-T Axes : 000 203 164 degrees QTc Int : 444 ms Normal sinus rhythm Right superior axis deviation Pulmonary disease pattern T wave abnormality, consider inferior ischemia Abnormal ECG Confirmed by BRITT POLLARD ([id number]), features editor ERICA DUFFY ([id number]) on 06/21/2020 3:12:31 PM Referred By: Confirmed By:BRITT Scott
--- NOTE | 2020-06-21 15:13 | EKG ---
Test Reason : Blood Pressure : / mmHG Vent. Rate : 090 BPM Atrial Rate : 090 BPM P-R Int : 128 ms QRS Dur : 092 ms QT Int : 352 ms P-R-T Axes : 024 -20 024 degrees QTc Int : 430 ms Normal sinus rhythm Voltage criteria for left ventricular hypertrophy Abnormal ECG Confirmed by BRITT POLLARD ([id number]), publication editor ERICA DUFFY ([id number]) on 06/21/2020 3:12:33 PM Referred By: Confirmed By:BRITT Scott
--- NOTE | 2020-06-21 16:00 | PDOC.HOSPP ---
- Subjective Encounter Date: 06/21/20 Encounter Time: 15:58 Subjective: Mr. Laurent was seen today in follow-up of COVID pneumonia. He says he is feeling better. He denies cough or feeling short of breath. He has been stable with oxygen via nasal canula. - Objective Vital Signs & Weight: Vital Signs (12 hours) Temp Pulse Resp BP Pulse Ox 06/21/20 08:02 98.1 F 59 L 20 119/78 98 06/21/20 08:00 98 Weight Weight 216 lb 8 oz I&O: 06/20/20 06/21/20 06/22/20 06:59 06:59 06:59 Intake Total 480 Balance 480 Result Diagrams: 06/21/20 06:24 06/21/20 06:24 Hospitalist ROS - Medication Medications: Active Medications Generic Name Dose Route Start Last Admin Trade Name Freq PRN Reason Stop Dose Admin Acetaminophen 650 mg 06/13/20 12:24 06/17/20 11:51 Acetaminophen 325 Mg Tab PO 650 mg Q4H PRN Administration Headache/Fever/Mild Pain (1-3) Albuterol Sulfate 2 puff 06/14/20 20:04 06/15/20 04:06 Albuterol 200 Puff (6.7gm Inhaler) INH 2 puff Q4H PRN Administration Wheezing Ascorbic Acid 1,000 mg 06/14/20 09:00 06/21/20 09:48 Ascorbic Acid 500 Mg Chewable Tablet PO 1,000 mg DAILY RENAE Administration Cholecalciferol 5,000 units 06/14/20 09:00 06/21/20 09:47 Cholecalciferol 1,000 Units (25 Mcg) Tab PO 5,000 units DAILY RENAE Administration Enoxaparin Sodium 40 mg 06/13/20 21:00 06/21/20 09:45 Enoxaparin Sodium 40 Mg/0.4 Ml Syringe SC 40 mg 0900,2100 RENAE Administration Famotidine 20 mg 06/13/20 21:00 06/21/20 09:47 Famotidine/Pf 20 Mg/2ml Vial SLOW IVP 20 mg Q12HR RENAE Administration Guaifenesin/Dextromethorphan 15 ml 06/13/20 12:24 06/17/20 00:48 Guaifenesin Dm 100-10/5 Ml Udcup PO 15 ml Q4H PRN Administration Cough Cefepime HCl 1 gm/ Sodium 100 mls @ 200 mls/hr 06/17/20 11:00 06/21/20 09:48 Chloride IVPB 06/26/20 23:29 100 mls 1100,2300 RENAE Administration Doxycycline Hyclate 100 mg/ 100 mls @ 100 mls/hr 06/17/20 11:00 06/21/20 11:04 Sodium Chloride IVPB 06/26/20 23:59 100 mls 1100,2300 RENAE Administration Mometasone Furoate/Formoterol Fumar 2 puff 06/17/20 18:30 06/21/20 09:46 Mometasone 200 Mcg/Formoterol 5 Mcg 120 Puff Inhaler INH 2 puff BID-RT RENAE Administration Pantoprazole Sodium 40 mg 06/20/20 09:00 06/21/20 09:48 Pantoprazole 40 Mg Tab PO 40 mg DAILY RENAE Administration Prednisone 40 mg 06/20/20 08:00 06/21/20 09:47 Prednisone 20 Mg Tab PO 40 mg QAM- RENAE Administration Zinc Sulfate 220 mg 06/14/20 09:00 06/21/20 09:47 Zinc Sulfate 220 Mg Cap PO 220 mg DAILY RENAE Administration - Exam General Appearance: NAD, awake alert Eye: PERRL, anicteric sclera Heart: RRR, no murmur, no gallops, no rubs, normal peripheral pulses Respiratory: rales (at both bases, no wheezing or rhonchi) Gastrointestinal: soft, non-tender, non-distended, normal bowel sounds, no palpable masses, no hepatomegaly Extremities: no cyanosis (good distal pulses bilaterally), no edema Hosp A/P (1) Acute respiratory failure with hypoxia Code(s): J96.01 - ACUTE RESPIRATORY FAILURE WITH HYPOXIA Status: Acute (2) Pneumonia due to COVID-19 virus Code(s): U07.1 - COVID-19; J12.82 - PNEUMONIA DUE TO CORONAVIRUS DISEASE 2019 Status: Acute (3) Hyperlipidemia Code(s): E78.5 - HYPERLIPIDEMIA, UNSPECIFIED Status: Chronic Qualifiers: Hyperlipidemia type: unspecified Qualified Code(s): E78.5 - Hyperlipidemia, unspecified (4) Hypertension Code(s): I10 - ESSENTIAL (PRIMARY) HYPERTENSION Status: Chronic Qualifiers: Hypertension type: essential hypertension Qualified Code(s): I10 - Essential (primary) hypertension (5) Obesity (BMI 30.0-34.9) Code(s): E66.9 - OBESITY, UNSPECIFIED Status: Chronic - Plan * Acute respiratory failure due to COVID pneumonia- he is clinically improving * Continue Decadron IV * HTN- blood pressure has been normal despite being off Lisinopril- will continue to hold for now, and if his pressure begins to creep up- will re- start it * Hyperlipidemia- re-start Atorvastatin * If he continues to be stable over the weekend, will discharge home on home oxygen
[2020-06-22] MEDS: Mometasone 200 MCG/Formoterol 5 MCG 120 PUFF INHALER INH SCH ×2 (05:41→18:00)
[2020-06-22] MEDS ORDERED: Lisinopril 20 MG TAB PO SCH (09:00)
[2020-06-22] MEDS: Zinc Sulfate 220 MG CAP PO SCH (09:27)
[2020-06-22] MEDS: Cholecalciferol 1,000 UNITS (25 MCG) TAB PO SCH (09:27)
[2020-06-22] MEDS: predniSONE 20 MG TAB PO SCH (09:27)
[2020-06-22] MEDS: Enoxaparin Sodium 40 MG/0.4 ML SYRINGE SC SCH ×2 (09:27→20:55)
[2020-06-22] MEDS: Famotidine/PF 20 mg/2ml Vial SLOW IVP SCH ×2 (09:27→20:55)
[2020-06-22] MEDS: Ascorbic Acid 500 mg Chewable Tablet PO SCH (09:27)
[2020-06-22] MEDS: Cefepime 1 GM in Sodium Chloride 0.9% 100 ML IVPB SCH ×2 (09:33→23:42)
[2020-06-22 12:47] LABS: Band 2 % (5-11); Hemoglobin 13.6 g/dL (14.0-18.0); Lymphocytes 27 % (21-51); MDiff Complete? YES; Mean Corpuscular HGB CONC 32.9 g/dL (32.0-36.0); Mean Corpuscular Hemoglobin 28.4 pg (27.0-31.0); Mean Corpuscular Volume 86.2 fL (78.0-98.0); Mean Platelet Volume 9.5 fL (7.4-10.4); Monocytes 6 % (0-10); Neutrophil 65 % (42-75); Platelet Count 322 thou/uL (130-400); RBC Distribution Width 12.8 % (11.5-14.5); Red Blood Cell (RBC) Count 4.78 mill/uL (4.70-6.10); White Blood Cell (WBC) Count 26.5 thou/uL (4.8-10.8)
--- NOTE | 2020-06-22 14:40 | PDOC.HOSPP ---
- Subjective Encounter Date: 06/22/20 Encounter Time: 14:38 Subjective: Mr. Laurent was seen today in follow-up of COVID pneumonia. He does not have any complaints today. He is breathing better. No new complaints. - Objective Vital Signs & Weight: Vital Signs (12 hours) Temp Pulse Resp BP Pulse Ox 06/22/20 08:22 97.9 F 54 L 20 116/62 95 06/22/20 08:00 95 06/22/20 03:44 52 L 18 95 Weight Weight 216 lb 8 oz I&O: 06/21/20 06/22/20 06/23/20 06:59 06:59 06:59 Intake Total 1420 Balance 1420 Result Diagrams: 06/22/20 12:06 06/21/20 06:24 Hospitalist ROS - Medication Medications: Active Medications Generic Name Dose Route Start Last Admin Trade Name Freq PRN Reason Stop Dose Admin Acetaminophen 650 mg 06/13/20 12:24 06/17/20 11:51 Acetaminophen 325 Mg Tab PO 650 mg Q4H PRN Administration Headache/Fever/Mild Pain (1-3) Albuterol Sulfate 2 puff 06/14/20 20:04 06/15/20 04:06 Albuterol 200 Puff (6.7gm Inhaler) INH 2 puff Q4H PRN Administration Wheezing Ascorbic Acid 1,000 mg 06/14/20 09:00 06/22/20 09:27 Ascorbic Acid 500 Mg Chewable Tablet PO 1,000 mg DAILY RENAE Administration Cholecalciferol 5,000 units 06/14/20 09:00 06/22/20 09:27 Cholecalciferol 1,000 Units (25 Mcg) Tab PO 5,000 units DAILY RENAE Administration Enoxaparin Sodium 40 mg 06/13/20 21:00 06/22/20 09:27 Enoxaparin Sodium 40 Mg/0.4 Ml Syringe SC 40 mg 0900,2100 RENAE Administration Famotidine 20 mg 06/13/20 21:00 06/22/20 09:27 Famotidine/Pf 20 Mg/2ml Vial SLOW IVP 20 mg Q12HR RENAE Administration Guaifenesin/Dextromethorphan 15 ml 06/13/20 12:24 06/17/20 00:48 Guaifenesin Dm 100-10/5 Ml Udcup PO 15 ml Q4H PRN Administration Cough Cefepime HCl 1 gm/ Sodium 100 mls @ 200 mls/hr 06/17/20 11:00 06/22/20 09:33 Chloride IVPB 06/26/20 23:29 100 mls 1100,2300 RENAE Administration Doxycycline Hyclate 100 mg/ 100 mls @ 100 mls/hr 06/17/20 11:00 06/22/20 12:36 Sodium Chloride IVPB 06/26/20 23:59 100 mls 1100,2300 RENAE Administration Mometasone Furoate/Formoterol Fumar 2 puff 06/17/20 18:30 06/22/20 05:41 Mometasone 200 Mcg/Formoterol 5 Mcg 120 Puff Inhaler INH 2 puff BID-RT RENAE Administration Pantoprazole Sodium 40 mg 06/20/20 09:00 06/22/20 09:27 Pantoprazole 40 Mg Tab PO 40 mg DAILY RENAE Administration Prednisone 40 mg 06/20/20 08:00 06/22/20 09:27 Prednisone 20 Mg Tab PO 40 mg QAM- RENAE Administration Zinc Sulfate 220 mg 06/14/20 09:00 06/22/20 09:27 Zinc Sulfate 220 Mg Cap PO 220 mg DAILY RENAE Administration - Exam Eye: PERRL, anicteric sclera Heart: RRR, no murmur, no gallops, no rubs, normal peripheral pulses Respiratory: no wheezes, no ronchi, rales (at the bases) Gastrointestinal: soft, non-tender, non-distended, normal bowel sounds, no palpable masses, no hepatomegaly, no splenomegaly Extremities: no cyanosis (good d.p. pulses bilaterally no lesions), no edema Hosp A/P (1) Acute respiratory failure with hypoxia Code(s): J96.01 - ACUTE RESPIRATORY FAILURE WITH HYPOXIA Status: Acute (2) Pneumonia due to COVID-19 virus Code(s): U07.1 - COVID-19; J12.82 - PNEUMONIA DUE TO CORONAVIRUS DISEASE 2019 Status: Acute (3) Hyperlipidemia Code(s): E78.5 - HYPERLIPIDEMIA, UNSPECIFIED Status: Chronic Qualifiers: Hyperlipidemia type: unspecified Qualified Code(s): E78.5 - Hyperlipidemia, unspecified (4) Hypertension Code(s): I10 - ESSENTIAL (PRIMARY) HYPERTENSION Status: Chronic Qualifiers: Hypertension type: essential hypertension Qualified Code(s): I10 - E ssential (primary) hypertension (5) Obesity (BMI 30.0-34.9) Code(s): E66.9 - OBESITY, UNSPECIFIED Status: Chronic - Plan * Acute respiratory failure due to COVID pneumonia- he is clinically improving * Continue Decadron IV * HTN- blood pressure has been normal despite being off Lisinopril- continue to hold Lisinopril * Hyperlipidemia-continue Atorvastatin * Leukocytosis- ? etioloy- he does not appear toxic. This may be due to steroids. Discussed with the patient. Recommend Outpatient follow-up * Home once oxygen arranged
[2020-06-22] MEDS ORDERED: Atorvastatin Calcium 40 MG TAB PO SCH (21:00)
[2020-06-23] MEDS: Mometasone 200 MCG/Formoterol 5 MCG 120 PUFF INHALER INH SCH (05:15)
[2020-06-23] MEDS: predniSONE 20 MG TAB PO SCH (08:31)
[2020-06-23] MEDS: Famotidine/PF 20 mg/2ml Vial SLOW IVP SCH (08:31)
[2020-06-23] MEDS: Ascorbic Acid 500 mg Chewable Tablet PO SCH (08:31)
[2020-06-23] MEDS: Zinc Sulfate 220 MG CAP PO SCH (08:31)
[2020-06-23] MEDS: Cholecalciferol 1,000 UNITS (25 MCG) TAB PO SCH (08:36)
[2020-06-23] MEDS: Enoxaparin Sodium 40 MG/0.4 ML SYRINGE SC SCH (08:36)
[2020-06-23] MEDS: Cefepime 1 GM in Sodium Chloride 0.9% 100 ML IVPB SCH (11:23)
[2020-06-23 16:22] VITALS: BP 123/79; TEMP 98.4
--- NOTE | 2020-06-23 17:06 | PDOC.HOSPP ---
- Subjective Encounter Date: 06/23/20 Encounter Time: 17:05 Subjective: Mr. Laurent was seen today in follow-up of COVID pneumonia. He does not have any complaints. He has been breathing well. - Objective Vital Signs & Weight: Vital Signs (12 hours) Temp Pulse Resp BP BP Pulse Ox 06/23/20 16:00 98.4 F 69 17 123/79 95 06/23/20 12:00 98.1 F 62 16 108/69 91 L 06/23/20 08:00 97 06/23/20 07:45 97.6 F 62 17 123/74 97 Weight Admit Weight 216 lb 8 oz Weight 216 lb 8 oz I&O: 06/22/20 06/23/20 06/24/20 06:59 06:59 06:59 Intake Total 1420 940 Output Total 225 Balance 1420 715 Result Diagrams: 06/22/20 12:06 06/21/20 06:24 Hospitalist ROS - Medication Medications: Active Medications Generic Name Dose Route Start Last Admin Trade Name Freq PRN Reason Stop Dose Admin Acetaminophen 650 mg 06/13/20 12:24 06/17/20 11:51 Acetaminophen 325 Mg Tab PO 650 mg Q4H PRN Administration Headache/Fever/Mild Pain (1-3) Albuterol Sulfate 2 puff 06/14/20 20:04 06/15/20 04:06 Albuterol 200 Puff (6.7gm Inhaler) INH 2 puff Q4H PRN Administration Wheezing Ascorbic Acid 1,000 mg 06/14/20 09:00 06/23/20 08:31 Ascorbic Acid 500 Mg Chewable Tablet PO 1,000 mg DAILY RENAE Administration Atorvastatin Calcium 40 mg 06/22/20 21:00 06/22/20 20:55 Atorvastatin Calcium 40 Mg Tab PO 40 mg HS RENAE Administration Cholecalciferol 5,000 units 06/14/20 09:00 06/23/20 08:36 Cholecalciferol 1,000 Units (25 Mcg) Tab PO 5,000 units DAILY RENAE Administration Enoxaparin Sodium 40 mg 06/13/20 21:00 06/23/20 08:36 Enoxaparin Sodium 40 Mg/0.4 Ml Syringe SC 40 mg 0900,2100 RENAE Administration Famotidine 20 mg 06/13/20 21:00 06/23/20 08:31 Famotidine/Pf 20 Mg/2ml Vial SLOW IVP 20 mg Q12HR RENAE Administration Guaifenesin/Dextromethorphan 15 ml 06/13/20 12:24 06/17/20 00:48 Guaifenesin Dm 100-10/5 Ml Udcup PO 15 ml Q4H PRN Administration Cough Cefepime HCl 1 gm/ Sodium 100 mls @ 200 mls/hr 06/17/20 11:00 06/23/20 11:23 Chloride IVPB 06/26/20 23:29 100 mls 1100,2300 RENAE Administration Doxycycline Hyclate 100 mg/ 100 mls @ 100 mls/hr 06/17/20 11:00 06/23/20 12:36 Sodium Chloride IVPB 06/26/20 23:59 100 mls 1100,2300 RENAE Administration Mometasone Furoate/Formoterol Fumar 2 puff 06/17/20 18:30 06/23/20 05:15 Mometasone 200 Mcg/Formoterol 5 Mcg 120 Puff Inhaler INH 2 puff BID-RT RENAE Administration Pantoprazole Sodium 40 mg 06/20/20 09:00 06/23/20 08:32 Pantoprazole 40 Mg Tab PO 40 mg DAILY RENAE Administration Prednisone 40 mg 06/20/20 08:00 06/23/20 08:31 Prednisone 20 Mg Tab PO 40 mg QAM-WM RENAE Administration Zinc Sulfate 220 mg 06/14/20 09:00 06/23/20 08:31 Zinc Sulfate 220 Mg Cap PO 220 mg DAILY RENAE Administration - Exam Eye: PERRL, anicteric sclera Heart: RRR, no murmur, no gallops, no rubs, normal peripheral pulses Respiratory: no wheezes, no ronchi, rales (at both bases,) Gastrointestinal: soft, non-tender, non-distended, normal bowel sounds, no palpable masses, no hepatomegaly, no splenomegaly Extremities: no cyanosis, no edema Hosp A/P (1) Acute respiratory failure with hypoxia Code(s): J96.01 - ACUTE RESPIRATORY FAILURE WITH HYPOXIA Status: Acute (2) Pneumonia due to COVID-19 virus Code(s): U07.1 - COVID-19; J12.82 - PNEUMONIA DUE TO CORONAVIRUS DISEASE 2019 Status: Acute (3) Hyperlipidemia Code(s): E78.5 - HYPERLIPIDEMIA, UNSPECIFIED Status: Chronic Qualifiers: Hyperlipidemia type: unspecified Qualified Code(s): E78.5 - Hyperlipidemia, unspecified (4) Hypertension Code(s): I10 - ESSENTIAL (PRIMARY) HYPERTENSION Status: Chronic Qualifiers: Hypertension type: essential hypertension Qualified Code(s): I10 - Essential (primary) hypertension (5) Obesity (BMI 30.0-34.9) Code(s): E66.9 - OBESITY, UNSPECIFIED Status: Chronic - Plan * Acute respiratory failure due to COVID pneumonia- he is clinically improving * Home oxygen has been delivered * Leukocytosis- reminded patient about need for outpatient follow-up * Stable for discharge home
--- NOTE | 2020-06-23 17:56 | PDOC.DS.DS ---
Provider - Provider Date of Admission: 06/13/20 12:18 Date of Discharge: 06/23/20 Admitting Provider: Jose David Gallo MD Consultations: Infectious Disease, Pulmonary Primary Care Physician: London Rand MD Course - Hospital Course Hospital Course: Mr. Merchant is a pleasant 59-year-old gentleman that has a history of hypertension and hyperlipidemia. He presented to the emergency room with shortness of breath. He had been diagnosed with COVID-19 virus about 11 days prior to admission. He had been getting progressively more short of breath and developed a fever. For this reason he was admitted. He was evaluated by the hunting sales leader as well as the infectious disease specialist. He was too many days out in order to receive remdesivir but he was placed on prednisone; initially Solu-Medrol. He was monitored in the hospital for several days he was also placed on IV antibiotics in the event that he had a superimposed bacterial infection. He progressed very well over the course of the next couple of days and was subsequently able to be discharged on home oxygen. It was also noted that his white blood cell count was persistently elevated it is unclear the etiology of this. He appeared nontoxic and there was no accompanying fever and he was instructed to discuss this finding with his primary care physician and may need outpatient work-up. Resuscitation Status: 06/13/20 12:24 Resuscitation Status Routine Co-Sign Provider: Resuscitation Status: FULL: Full Resuscitation Discussed with: patient - Labs Lab Results: 06/22/20 12:06 06/21/20 06:24 Abnormal Lab Results - Last 48 hrs 06/22/20 12:06: C-Reactive Protein 0.62 H 06/22/20 12:06: Ferritin 1632.39 H 06/22/20 12:06: WBC 26.5 H, Hgb 13.6 L, Hct 41.2 L Microbiology - Entire Visit 06/13/20 10:49 Venous blood - Left Hand Blood Culture - Final NO GROWTH IN 5 DAYS 06/13/20 10:37 Venous blood - Left Hand Blood Culture - Final NO GROWTH IN 5 DAYS - Physical Exam Vitals: Vital Signs (12 hours) Temp Pulse Resp BP BP Pulse Ox 06/23/20 16:00 98.4 F 69 17 123/79 95 06/23/20 12:00 98.1 F 62 16 108/69 91 L 06/23/20 08:00 97 01/18/21 07:45 97.6 F 62 17 123/74 97 Weight Admit Weight 216 lb 8 oz Weight 216 lb 8 oz Physical Exam: The patient was seen and examined on the day of discharge. Problem - Problem (1) Acute respiratory failure with hypoxia Code(s): J96.01 - ACUTE RESPIRATORY FAILURE WITH HYPOXIA Status: Acute (2) Pneumonia due to COVID-19 virus Code(s): U07.1 - COVID-19; J12.82 - PNEUMONIA DUE TO CORONAVIRUS DISEASE 2019 Status: Acute (3) Hyperlipidemia Code(s): E78.5 - HYPERLIPIDEMIA, UNSPECIFIED Status: Chronic Qualifiers: Hyperlipidemia type: unspecified Qualified Code(s): E78.5 - Hyperlipidemia, unspecified (4) Hypertension Code(s): I10 - ESSENTIAL (PRIMARY) HYPERTENSION Status: Chronic Qualifiers: Hypertension type: essential hypertension Qualified Code(s): I10 - Essential (primary) hypertension (5) Obesity (BMI 30.0-34.9) Code(s): E66.9 - OBESITY, UNSPECIFIED Status: Chronic Plan - Discharge Medications Prescriptions: predniSONE 40 mg PO QAM-WM #5 tab Pantoprazole [Protonix] 40 mg PO DAILY #30 tab Doxycycline [Vibramycin] 100 mg PO BID #10 cap Home Medications: Medication Instructions Recorded Confirmed Type Atorvastatin Calcium [Lipitor] 40 mg PO DAILY 02/24/19 06/13/20 History Lisinopril 20 mg PO DAILY 02/24/19 06/13/20 History Doxycycline [Vibramycin] 100 mg PO BID #10 cap 06/23/20 Rx Pantoprazole [Protonix] 40 mg PO DAILY #30 tab 06/23/20 Rx Zinc Sulfate 220 mg PO DAILY cap 06/23/20 Rx predniSONE 40 mg PO QAM-WM #5 tab 06/23/20 Rx Allergies: No Known Drug Allergies Allergy (Verified 06/13/20 15:42) Verified with pt - Discharge Instructions Discharge Instructions:: YOUR PRESCRIPTIONS WERE SENT TO: [facility] [address] [place] [address] Activity:: Activity as Tolerated Nourishment:: Heart Healthy Diet - Follow up Plan Referrals: [facility] [Outside] London Rand MD [Primary Care Provider] - Disposition: HOME Quality - Care Measures CORE MEASURES:: N/A
== END 2020-06-23 18:45 | disposition home or self-care (01) | DRG 871 ==
LOC: ERS 10:27 → OBSVTOIN 12:18 → T4-A 12:18
PROVIDERS: ADMIT Internal Medicine; ATTEND Internal Medicine
PROC: 8E0ZXY6 Isolation (ICD-10-PCS; principal; 2020-06-13)
DX: A41.89 Other specified sepsis (principal); U07.1 COVID-19; J12.82 Pneumonia due to coronavirus disease 2019; J96.01 Acute respiratory failure with hypoxia; E78.5 Hyperlipidemia, unspecified; I10 Essential (primary) hypertension; E78.00 Pure hypercholesterolemia, unspecified; E66.9 Obesity, unspecified; D72.829 Elevated white blood cell count, unspecified; Z68.34 Body mass index [BMI] 34.0-34.9, adult; Z79.899 Other long term (current) drug therapy
CPT/HCPCS: 36415; 71045; 80053; 81001; 82728; 83605; 83690; 83880; 84145; 84484; 85025; 85379; 85610; 85730; 86140; 87040; 93005; 94760; 96365; 96367; 96372; 96375; 96376; G0378; J0456; J0692; J0696; J1100; J1650; J3490; J7050; J7512; S0028